=== PATIENT | male | born 1975 | race Caucasian/White ===

== ENCOUNTER 2017-07-29 19:15 | Emergency (ER) | payer OTHER ==
[~2017-07-29] VITALS: Ht 177.8 cm; Wt 138.4 kg
[~2017-07-29 19:15] MED LIST: ACET-1311 PO; AMLO10TA2 PO; DIAZ-165 PO; GABA-113 PO; LISI-729 PO
[2017-07-29 19:25] VITALS: TEMP 36.8; Ht 177.8 cm; Wt 138.4 kg
[2017-07-29] MEDS ORDERED: KETOROLAC TROMETHAMINE 30 MG/ML VIAL IV STA (20:06)
[2017-07-29] MEDS ORDERED: FENTANYL CITRATE INJ 50 MCG/1 ML 2 ML VIAL IV ONE (20:15)
[2017-07-29] MEDS ORDERED: ALBU18002 INH (20:19)
[2017-07-29 20:21] LABS: BASO % 0.4 %; BASO ABS # 0.07 K/uL (0-0.2); EOS % 2.4 %; EOS ABS # 0.43 K/uL (0-0.5); HEMATOCRIT 49.1 % (42-52); HEMOGLOBIN 17.5 g/dL (14.0-18.0); IG# 0.16 K/uL (0.00-0.02); LYMPH % 22.2 %; LYMPH ABS # 3.95 K/uL (1.2-3.4); MEAN CELL VOLUME 88.5 fL (80-100); MEAN CORPUSCULAR HEMOGLOBIN 31.5 pg (25-34); MEAN CORPUSCULAR HGB CONC 35.6 g/dl (32-36); MEAN PLATELET VOLUME 11.2 fL (7.4-10.4); MONO % 7.6 %; MONO ABS # 1.35 K/uL (0.11-0.59); NEUT % 66.5 %; NEUT ABS # 11.86 K/uL (1.4-6.5); PLATELET COUNT 283 K/uL (130-400); RED CELL DISTRIBUTION WIDTH CV 14.6 % (11.5-14.5); RED CELL DISTRIBUTION WIDTH SD 47.4 fL (36.4-46.3); WHITE BLOOD COUNT 17.82 K/uL (4.8-10.8)
[2017-07-29] MEDS ORDERED: AMOX875T3 PO (20:22)
[2017-07-29] MEDS ORDERED: PRED20TA PO (20:25)
[2017-07-29] MEDS ORDERED: DICL50TA3 PO (20:26)
--- NOTE | 2017-07-29 20:29 | DIAGNOSTIC IMAGING REPORT ---
CHEST ONE VIEW PORTABLE CLINICAL HISTORY: Atypical chest pain. Tachycardia. COMPARISON STUDY: No previous studies for comparison. FINDINGS: The heart is mildly enlarged. There is no overt failure. There is no focal pulmonary consolidation. There are no pleural effusions. Slightly prominent basilar markings, likely related to technical factors.[ IMPRESSION: No active disease in the chest. Electronically signed by: Luke Kellogg M.D. 07/29/2017 8:28 PM Dictated Date/Time: 07/29/2017 8:28 PM
--- NOTE | 2017-07-29 20:32 | EMERGENCY ROOM VISIT NOTE ---
History First contact with patient: 19:29 Chief Complaint: BACK PAIN Stated Complaint: SOB, BAD BACK PAIN History of Present Illness 41M with a PMHX of Lumbar Herniation s/p discectomy with Dr. Tierney in 2014 who presents to the Emergency Room with complaints of an acute exacerbation of LUQ pain radiating to the back. Pt has been having LUQ pain radiating to his back for two weeks. He was seen by his PCP, started on Augmentin and Prednisone three days prior and was sent for a CT Chest for PE today at [facility]. Patient was walking out of [facility] after his CT when he coughed and buckled to his knees from pain in his abdomen and back. He came to the ER immediately afterwards. Patient reports that his LUQ pain is worse when he lays supine or takes a deep breath. He has never had a pain like this before. He also notes that he has had a high heart rate and cough for the past two weeks. Pt has no history of kidney stones, no history of gallstones. Denies any rashes to the area. Denies any chest pain. SHX: Smoking x 3 years, used to chew for 25 years, social drinker, unemployed at present, when was employed did not do very physical work. ROS: Denies vomiting, denies diarrhea, denies hemoptysis, denies dysuria. + SOB on exertion that is worse recently. No fevers, no chills. Review of Systems See HPI for pertinent positives and negatives. A total of ten systems were reviewed and were otherwise negative. Past Medical/Surgical History Medical Problems: (1) Hypertension (2) Spinal fusion at L5 Surgical Problems: (1) History of appendectomy Family History Diabetes mellitus FHx: cancer Social History Smoking Status: Current Every Day Smoker Drug Use: none Marital Status: single Housing Status: lives alone Occupation Status: employed Current/Historical Medications Scheduled Amlodipine Besylate (Norvasc), 10 MG PO QAM Amoxicillin (Amoxil), 875 MG PO BID Lisinopril (Zestril), 5 MG PO QAM Prednisone (Prednisone), 20 MG PO DAILY/UD Scheduled PRN Albuterol Sulfate (Proair Respiclick), 2 PUFFS INH Q6H PRN for SOB/Wheezing Diclofenac (Voltaren), 50 MG PO TID PRN for Pain Ibuprofen (Motrin), 800 MG PO Q8H PRN for Pain Physical Exam Vital Signs Date Time Temp Pulse Resp B/P (MAP) Pulse Ox O2 Delivery O2 Flow Rate FiO2 07/29/17 21:00 92 07/29/17 20:26 99 18 132/91 93 Room Air 07/29/17 19:25 36.8 115 20 148/91 93 Room Air Physical Exam Gen: Mild to moderate distress. Obese male. HEENT: Head - normocephalic and atraumatic. Pupils are equal, round, and reactive to light. Extraocular eye muscles are intact and sclera are anicteric. Ears - bilaterally patent canals with noninjected tympanic membranes and no evidence of hemotympanum. Nose - moist nasal mucosa without discharge. Mouth - moist buccal mucosa. Oropharynx is nonerythematous and there is no tonsillar exudate or edema noted. Neck: Supple; no JVD, nuchal rigidity, cervical lymphadenopathy, or auscultated bruits. Heart: Tachycardic on exam. There is a normal S1 and S2 with no murmurs, clicks , or gallops appreciated. Lungs: Clear to auscultation bilaterally with no wheezes, rales, or rhonchi. Abdomen: Soft, tender to palpation in the LUQ, Good bowel sounds. There are no palpable pulsatile masses. There is no guarding, rigidity, or rebound noted. Extremities: No evidence of cyanosis, clubbing, or edema. No visible signs of trauma. There are easily palpable peripheral pulses. No Calf tenderness. Straight leg test was negative. Tender on the left paraspinal lumbar area to palpation. Neuro: The patient is awake and alert, oriented to day, time, and place. Muscle strength is 5/5 in all 4 extremities. The patient has equal dolly pusher strength and equal pedal push and pull. There are no cerebellar signs. Sensation to light touch is intact in all extremities. Medical Decision & Procedures ER Provider Diagnostic Interpretation: CT for PE (07/29/2016) at [facility]. Heart and Mediastinum: Unremarkable Lungs and Pleura: Minimal dependent atelectasis. Occasional calcified granulomata noted. No focal parenchymal consolidation identifie. No pneumothroax or pleural effusion. BONES: Multilevel intervertebral disc degeneration in the thoracic spine. No pulmonary embolism identified. Please note that hte distal/subsegmental branches are only variably seen, and a small peripheral embolus cannot be entirely excluded. If there is a high clinical suspicion, a V/Q scan could be considered for further evaluation. Left Ribs Unilateral Including PA Chest Impression: There is no evidence for an acute, displaced left rib fracture. CHEST ONE VIEW PORTABLE CLINICAL HISTORY: Atypical chest pain. Tachycardia. COMPARISON STUDY: No previous studies for comparison. FINDINGS: The heart is mildly enlarged. There is no overt failure. There is no focal pulmonary consolidation. There are no pleural effusions. Slightly prominent basilar markings, likely related to technical factors.[ IMPRESSION: No active disease in the chest. CT SCAN OF THE ABDOMEN AND PELVIS WITHOUT CONTRAST CLINICAL HISTORY: Left upper quadrant abdominal pain radiating to the back COMPARISON STUDY: November 2011 TECHNIQUE: CT scan of the abdomen and pelvis was performed from the lung bases to the proximal femurs. Images are reviewed in the axial, sagittal, and coronal planes. IV contrast was not administered for this examination. A dose lowering technique was utilized adhering to the principles of ALARA. CT DOSE: 1741.93 mGy.cm FINDINGS: Lower chest: There are mild basilar atelectatic changes Liver: No focal hepatic masses are visualized on this noncontrast study. There is no significant ductal dilatation. Gallbladder: Unremarkable. Spleen: Normal in size and attenuation. Pancreas: Unremarkable. Adrenal glands: Unremarkable. Kidneys: There is contrast excretion from both kidneys. This precludes evaluation of renal calculi. There is no hydronephrosis. Bowel: There are no transition zones indicate bowel obstruction. By history the appendix is surgically absent. There is no acute diverticulitis. There are surgical clips near the cecal tip. There are scattered colonic diverticula. Peritoneum: There is no intraperitoneal free air or abdominal ascites. Vasculature: The abdominal aorta is normal in course and caliber. Adenopathy: None. Pelvic viscera: The bladder, and pelvic viscera are unremarkable. Skeletal structures: Postsurgical changes are present within the spine. IMPRESSION: 1. No evidence of bowel obstruction. No evidence of free air 2. Surgically absent appendix. No evidence of acute diverticulitis 3. No acute inflammatory changes. No evidence of pathologic adenopathy. Laboratory Results 07/29/17 20:00 Red Blood Count 5.55, Mean Corpuscular Volume 88.5, Mean Corpuscular Hemoglobin 31.5, Mean Corpuscular Hemoglobin Concent 35.6, Mean Platelet Volume 11.2, Neutrophils (%) (Auto) 66.5, Lymphocytes (%) (Auto) 22.2, Monocytes (%) (Auto) 7.6, Eosinophils (%) (Auto) 2.4, Basophils (%) (Auto) 0.4, Neutrophils # (Auto) 11.86, Lymphocytes # (Auto) 3.95, Monocytes # (Auto) 1.35, Eosinophils # (Auto) 0.43, Basophils # (Auto) 0.07 07/29/17 20:00 Test 07/29/17 20:00 07/29/17 20:30 07/29/17 20:31 07/29/17 20:44 White Blood Count 17.82 K/uL (4.8-10.8) Red Blood Count 5.55 M/uL (4.7-6.1) Hemoglobin 17.5 g/dL (14.0-18.0) Hematocrit 49.1 % (42-52) Mean Corpuscular Volume 88.5 fL (80-100) Mean Corpuscular Hemoglobin 31.5 pg (25-34) Mean Corpuscular Hemoglobin Concent 35.6 g/dl (32-36) Platelet Count 283 K/uL (130-400) Mean Platelet Volume 11.2 fL (7.4-10.4) Neutrophils (%) (Auto) 66.5 % Lymphocytes (%) (Auto) 22.2 % Monocytes (%) (Auto) 7.6 % Eosinophils (%) (Auto) 2.4 % Basophils (%) (Auto) 0.4 % Neutrophils # (Auto) 11.86 K/uL (1.4-6.5) Lymphocytes # (Auto) 3.95 K/uL (1.2-3.4) Monocytes # (Auto) 1.35 K/uL (0.11-0.59) Eosinophils # (Auto) 0.43 K/uL (0-0.5) Basophils # (Auto) 0.07 K/uL (0-0.2) RDW Standard Deviation 47.4 fL (36.4-46.3) RDW Coefficient of Variation 14.6 % (11.5-14.5) Immature Granulocyte % (Auto) 0.9 % Immature Granulocyte # (Auto) 0.16 K/uL (0.00-0.02) Anion Gap 9.0 mmol/L (3-11) Est Creatinine Clear Calc Drug Dose 100.4 ml/min Estimated GFR () 75.4 Estimated GFR (Non- 65.0 BUN/Creatinine Ratio 21.1 (10-20) Calcium Level 9.7 mg/dl (8.5-10.1) Magnesium Level 2.3 mg/dl (1.8-2.4) Total Bilirubin 0.4 mg/dl (0.2-1) Aspartate Amino Transf (AST/SGOT) 30 U/L (15-37) Alanine Aminotransferase (ALT/SGPT) 48 U/L (12-78) Alkaline Phosphatase 92 U/L (45-117) Total Protein 7.7 gm/dl (6.4-8.2) Albumin 4.1 gm/dl (3.4-5.0) Globulin 3.6 gm/dl (2.5-4.0) Albumin/Globulin Ratio 1.1 (0.9-2) Lipase 279 U/L (73-393) Chemistry Specimen Hemolysis Urine Color YELLOW Urine Appearance CLEAR (CLEAR) Urine pH 5.0 (4.5-7.5) Urine Specific Ferriday 1.034 (1.000-1.030) Urine Protein NEG (NEG) Urine Glucose (UA) NEG (NEG) Urine Ketones NEG (NEG) Urine Occult Blood NEG (NEG) Urine Nitrite NEG (NEG) Urine Bilirubin NEG (NEG) Urine Urobilinogen NEG (NEG) Urine Leukocyte Esterase NEG (NEG) Bedside Troponin I < 0.030 ng/ml (0-0.045) Lactic Acid Level 0.8 mmol/L (0.4-2.0) Medications Administered Medications (Trade) Dose Ordered Sig/Faustina Route Start Time Stop Time Status Last Admin Dose Admin Ketorolac Tromethamine (Toradol Inj) 15 mg NOW STAT IV 07/29/17 20:06 07/29/17 20:12 DC 07/29/17 20:24 15 MG Fentanyl Citrate (Fentanyl Inj) 50 mcg NOW ONCE IV 07/29/17 20:15 07/29/17 20:16 DC 07/29/17 20:25 50 MCG ECG Indication: abdominal pain Rhythm: normal sinus Comparison ECG Date: no prior available Medical Decision The patient's care and disposition was discussed with Dr. Thompson, Attending ED Physician. This is a 41M with LUQ pain radiating to the back. Differential diagnosis include pancreatitis, muscle strain, acute coronary syndrome, myocardial infarction, pericarditis, pulmonary embolus, aortic dissection, pneumonia, pneumothorax, musculoskeletal, shingles, esophageal. Triage Nursing notes were reviewed. ED Course included an extensive history and physical exam, labs, EKG and imaging. Labs are significant for an elevated WBC count (18,000). This is not remarkable in the setting of the patient's Prednisone use. Trops were negative. Lipase WNL. Lactate WNL. CT of the Abdomen and Pelvis without contrast did not show any acute process. EKG showed sinus rhythm. CT for PE done at [facility] was reviewed and recent rib series were reviewed. The pt was informed about the findings as listed above. All questions were answered. Return instructions were outlined and the patient was discharged in good condition. The patient was referred to PCP for recheck of the current condition. Head Trauma GCS Score: 15 Impression Primary Impression: Bronchitis Departure Information Dispostion Home / Self-Care Prescriptions Ibuprofen (Motrin) 800 Mg Tab 800 MG PO Q8H Y for Pain for 7 Days, #21 TAB Prov: Serjio Stephens M.D. 07/29/17 Referrals Eduardo Cabrera III, M.D. (PCP) Patient Instructions Bronchitis Acute, My [facility] Additional Instructions The imaging of your Abdomen and Pelvis did not show any abnormal process. The lab work was also normal. The EKG was also normal. The pain is likely coming from inflammation in your chest wall from an inflammatory process such as bronchitis. You may resume your home medications including Augmentin and Prednisone as directed. We are prescribing 800mg of Ibuprofen for pain. Take this medication up to three times daily. Make sure you drink a lot of fluids when taking Ibuprofen. Do not take your Diclofenac while taking Ibuprofen. Please follow up with your PCP within 1-2 weeks. Resident Involvement: Resident Care Provided Care Provided: [facility]
[2017-07-29 20:55] LABS: ALBUMIN 4.1 gm/dl (3.4-5.0); CALCIUM 9.7 mg/dl (8.5-10.1); CREATININE 1.33 mg/dl (0.60-1.40); POTASSIUM 4.1 mmol/L (3.5-5.1); TOTAL PROTEIN 7.7 gm/dl (6.4-8.2)
--- NOTE | 2017-07-29 21:03 | DIAGNOSTIC IMAGING REPORT ---
CT SCAN OF THE ABDOMEN AND PELVIS WITHOUT CONTRAST CLINICAL HISTORY: Left upper quadrant abdominal pain radiating to the back COMPARISON STUDY: November 2011 TECHNIQUE: CT scan of the abdomen and pelvis was performed from the lung bases to the proximal femurs. Images are reviewed in the axial, sagittal, and coronal planes. IV contrast was not administered for this examination. A dose lowering technique was utilized adhering to the principles of ALARA. CT DOSE: 1741.93 mGy.cm FINDINGS: Lower chest: There are mild basilar atelectatic changes Liver: No focal hepatic masses are visualized on this noncontrast study. There is no significant ductal dilatation. Gallbladder: Unremarkable. Spleen: Normal in size and attenuation. Pancreas: Unremarkable. Adrenal glands: Unremarkable. Kidneys: There is contrast excretion from both kidneys. This precludes evaluation of renal calculi. There is no hydronephrosis. Bowel: There are no transition zones indicate bowel obstruction. By history the appendix is surgically absent. There is no acute diverticulitis. There are surgical clips near the cecal tip. There are scattered colonic diverticula. Peritoneum: There is no intraperitoneal free air or abdominal ascites. Vasculature: The abdominal aorta is normal in course and caliber. Adenopathy: None. Pelvic viscera: The bladder, and pelvic viscera are unremarkable. Skeletal structures: Postsurgical changes are present within the spine. IMPRESSION: 1. No evidence of bowel obstruction. No evidence of free air 2. Surgically absent appendix. No evidence of acute diverticulitis 3. No acute inflammatory changes. No evidence of pathologic adenopathy. Electronically signed by: Luke Kellogg M.D. 07/29/2017 9:02 PM Dictated Date/Time: 07/29/2017 8:56 PM
[2017-07-29] MEDS ORDERED: IBUP-1428 PO (21:28)
[2017-07-29 21:48] VITALS: BP 127/82; PULSE 98; O2SAT 95
--- NOTE | 2017-07-29 22:30 | EMERGENCY ROOM VISIT NOTE ---
History Report prepared by Joanie: Milagros Martinez Under the Supervision of: Dr. Waqar Thompson M.D. First contact with patient: 19:29 Chief Complaint: BACK PAIN Stated Complaint: SOB, BAD BACK PAIN History of Present Illness The patient is a 41 year old male who presents to the Emergency Room with complaints of persistent LUQ abdominal pain starting HAIR STYLIST. The patient had a CTA today to look for PE which was negative. He has had persistent tachycardia and pleuritic chest pain for the past 2 weeks. He also had an elevated D dimer. As he was leaving the office today, he coughed and started having excruciating LUQ pain which goes through to his back. He describes the pain as stabbing. He had this pain 4-5 days ago with coughing and was not able to sleep. The pain worsens with lying down. He has had a cough which produces brown sputum. He is on amoxicillin, prednisone, and an inhaler. He has had SOB with exertion for the past 2 weeks. His chest pain worsens with deep breaths. He denies any fevers , chills, congestion, urinary symptoms, change in bowel movement, vomiting, or diarrhea. He does smoke 1 pack per day. He denies any alcohol use. He denies any history of gallstones or kidney stones. His was sick with a virus recently. He has a history of hypertension. He denies any history of heart problems. He denies any recent falls. He does drink coffee and ice tea throughout the day. Source of History: patient Onset: HAIR STYLIST Position: abdomen (LUQ) Symptom Intensity: excruciating Quality: stabbing Timing: other (persistent) Modifying Factors (Worsening): other (lying down) Associated Symptoms: + cough, + chest pain, + SOB, + back pain, No fevers, No chills, No vomiting, No diarrhea, No urinary symptoms Review of Systems See HPI for pertinent positives and negatives. A total of ten systems were reviewed and were otherwise negative. Past Medical & Surgical Medical Problems: (1) Hypertension (2) Spinal fusion at L5 Surgical Problems: (1) History of appendectomy Family History Diabetes mellitus FHx: cancer Social History Smoking Status: Current Every Day Smoker Alcohol Use: none Marital Status: Current/Historical Medications Scheduled Amlodipine Besylate (Norvasc), 10 MG PO QAM Amoxicillin (Amoxil), 875 MG PO BID Lisinopril (Zestril), 5 MG PO QAM Prednisone (Prednisone), 20 MG PO DAILY/UD Scheduled PRN Albuterol Sulfate (Proair Respiclick), 2 PUFFS INH Q6H PRN for SOB/Wheezing Diclofenac (Voltaren), 50 MG PO TID PRN for Pain Ibuprofen (Motrin), 800 MG PO Q8H PRN for Pain Allergies Coded Allergies: No Known Allergies (Verified , 07/29/17) Physical Exam Vital Signs Date Time Temp Pulse Resp B/P (MAP) Pulse Ox O2 Delivery O2 Flow Rate FiO2 07/29/17 21:48 98 19 127/82 95 07/29/17 21:00 92 07/29/17 20:26 99 18 132/91 93 Room Air 07/29/17 19:25 36.8 115 20 148/91 93 Room Air Physical Exam GENERAL: Awake, alert, uncomfortable-appearing, in no distress HENT: Normocephalic, atraumatic. Dry mucous membranes. EYES: Normal conjunctiva. Sclera non-icteric. NECK: Supple. No nuchal rigidity. FROM. No JVD. RESPIRATORY: Clear to auscultation. CARDIAC: Regular rate, normal rhythm. Extremities warm and well perfused. Pulses equal. ABDOMEN: Soft, non-distended. Mild LUQ tenderness to palpation. No peritoneal signs. No rebound or guarding. No masses. RECTAL: Deferred. MUSCULOSKELETAL: Chest examination reveals no tenderness. The back is symmetrical on inspection without obvious abnormality. There is mild left CVA tenderness to palpation. No joint edema. LOWER EXTREMITIES: Calves are equal size bilaterally and non-tender. No edema. No discoloration. NEURO: Normal sensorium. No sensory or motor deficits noted. SKIN: No rash or jaundice noted. Medical Decision & Procedures ER Provider Diagnostic Interpretation: Radiology results as stated below per my review and radiologist interpretation: CHEST ONE VIEW PORTABLE CLINICAL HISTORY: Atypical chest pain. Tachycardia. COMPARISON STUDY: No previous studies for comparison. FINDINGS: The heart is mildly enlarged. There is no overt failure. There is no focal pulmonary consolidation. There are no pleural effusions. Slightly prominent basilar markings, likely related to technical factors.[ IMPRESSION: No active disease in the chest. Electronically signed by: Luke Kellogg M.D. 07/29/2017 8:28 PM Dictated Date/Time: 07/29/2017 8:[address] SCAN OF THE ABDOMEN AND PELVIS WITHOUT CONTRAST CLINICAL HISTORY: Left upper quadrant abdominal pain radiating to the back COMPARISON STUDY: November 2011 TECHNIQUE: CT scan of the abdomen and pelvis was performed from the lung bases to the proximal femurs. Images are reviewed in the axial, sagittal, and coronal planes. IV contrast was not administered for this examination. A dose lowering technique was utilized adhering to the principles of ALARA. CT DOSE: 1741.93 mGy.cm FINDINGS: Lower chest: There are mild basilar atelectatic changes Liver: No focal hepatic masses are visualized on this noncontrast study. There is no significant ductal dilatation. Gallbladder: Unremarkable. Spleen: Normal in size and attenuation. Pancreas: Unremarkable. Adrenal glands: Unremarkable. Kidneys: There is contrast excretion from both kidneys. This precludes evaluation of renal calculi. There is no hydronephrosis. Bowel: There are no transition zones indicate bowel obstruction. By history the appendix is surgically absent. There is no acute diverticulitis. There are surgical clips near the cecal tip. There are scattered colonic diverticula. Peritoneum: There is no intraperitoneal free air or abdominal ascites. Vasculature: The abdominal aorta is normal in course and caliber. Adenopathy: None. Pelvic viscera: The bladder, and pelvic viscera are unremarkable. Skeletal structures: Postsurgical changes are present within the spine. IMPRESSION: 1. No evidence of bowel obstruction. No evidence of free air 2. Surgically absent appendix. No evidence of acute diverticulitis 3. No acute inflammatory changes. No evidence of pathologic adenopathy. Electronically signed by: Luke Kellogg M.D. 07/29/2017 9:02 PM Dictated Date/Time: 07/29/2017 8:56 PM Laboratory Results 07/29/17 20:00 Red Blood Count 5.55, Mean Corpuscular Volume 88.5, Mean Corpuscular Hemoglobin 31.5, Mean Corpuscular Hemoglobin Concent 35.6, Mean Platelet Volume 11.2, Neutrophils (%) (Auto) 66.5, Lymphocytes (%) (Auto) 22.2, Monocytes (%) (Auto) 7.6, Eosinophils (%) (Auto) 2.4, Basophils (%) (Auto) 0.4, Neutrophils # (Auto) 11.86, Lymphocytes # (Auto) 3.95, Monocytes # (Auto) 1.35, Eosinophils # (Auto) 0.43, Basophils # (Auto) 0.07 07/29/17 20:00 Test 07/29/17 20:00 07/29/17 20:30 07/29/17 20:31 07/29/17 20:44 White Blood Count 17.82 K/uL (4.8-10.8) Red Blood Count 5.55 M/uL (4.7-6.1) Hemoglobin 17.5 g/dL (14.0-18.0) Hematocrit 49.1 % (42-52) Mean Corpuscular Volume 88.5 fL (80-100) Mean Corpuscular Hemoglobin 31.5 pg (25-34) Mean Corpuscular Hemoglobin Concent 35.6 g/dl (32-36) Platelet Count 283 K/uL (130-400) Mean Platelet Volume 11.2 fL (7.4-10.4) Neutrophils (%) (Auto) 66.5 % Lymphocytes (%) (Auto) 22.2 % Monocytes (%) (Auto) 7.6 % Eosinophils (%) (Auto) 2.4 % Basophils (%) (Auto) 0.4 % Neutrophils # (Auto) 11.86 K/uL (1.4-6.5) Lymphocytes # (Auto) 3.95 K/uL (1.2-3.4) Monocytes # (Auto) 1.35 K/uL (0.11-0.59) Eosinophils # (Auto) 0.43 K/uL (0-0.5) Basophils # (Auto) 0.07 K/uL (0-0.2) RDW Standard Deviation 47.4 fL (36.4-46.3) RDW Coefficient of Variation 14.6 % (11.5-14.5) Immature Granulocyte % (Auto) 0.9 % Immature Granulocyte # (Auto) 0.16 K/uL (0.00-0.02) Anion Gap 9.0 mmol/L (3-11) Est Creatinine Clear Calc Drug Dose 100.4 ml/min Estimated GFR () 75.4 Estimated GFR (Non- 65.0 BUN/Creatinine Ratio 21.1 (10-20) Calcium Level 9.7 mg/dl (8.5-10.1) Magnesium Level 2.3 mg/dl (1.8-2.4) Total Bilirubin 0.4 mg/dl (0.2-1) Aspartate Amino Transf (AST/SGOT) 30 U/L (15-37) Alanine Aminotransferase (ALT/SGPT) 48 U/L (12-78) Alkaline Phosphatase 92 U/L (45-117) Total Protein 7.7 gm/dl (6.4-8.2) Albumin 4.1 gm/dl (3.4-5.0) Globulin 3.6 gm/dl (2.5-4.0) Albumin/Globulin Ratio 1.1 (0.9-2) Lipase 279 U/L (73-393) Chemistry Specimen Hemolysis Urine Color YELLOW Urine Appearance CLEAR (CLEAR) Urine pH 5.0 (4.5-7.5) Urine Specific [place] 1.034 (1.000-1.030) Urine Protein NEG (NEG) Urine Glucose (UA) NEG (NEG) Urine Ketones NEG (NEG) Urine Occult Blood NEG (NEG) Urine Nitrite NEG (NEG) Urine Bilirubin NEG (NEG) Urine Urobilinogen NEG (NEG) Urine Leukocyte Esterase NEG (NEG) Bedside Troponin I < 0.030 ng/ml (0-0.045) Lactic Acid Level 0.8 mmol/L (0.4-2.0) Laboratory results reviewed by me Medications Administered Medications (Trade) Dose Ordered Sig/Faustina Route Start Time Stop Time Status Last Admin Dose Admin Ketorolac Tromethamine (Toradol Inj) 15 mg NOW STAT IV 07/29/17 20:06 07/29/17 20:12 DC 07/29/17 20:24 15 MG Fentanyl Citrate (Fentanyl Inj) 50 mcg NOW ONCE IV 07/29/17 20:15 07/29/17 20:16 DC 07/29/17 20:25 50 MCG ECG Indication: chest pain Rate (beats per minute): 95 Rhythm: normal sinus Findings: no acute ischemic change, other (normal axis) ED Course 2030: The patient was evaluated in room B8. A complete history and physical exam was performed. Medical Decision I reviewed the patient's past medical history, medications, and the nursing notes as described above. Differential diagnosis: Etiologies such as appendicitis, diverticulitis, PUD, biliary pathology, UTI, pancreatitis, obstruction, mesenteric ischemia, aortic pathology, infections, inflammatory bowel disease, renal colic, as well as others were entertained. The patient is a 41 y/o gentleman with a pmhx of HTN and active smoking presents to the emergency department with persistent Left CW and LUQ pain in the setting of persistent cough with pcp visit today with negative CT-PE study and started on Prednisone, Albuterol, and Amoxicillin per HPI. On arrival the patient is in NAD, AFVSS. Labs with elevated wbc 17, which is likely 2/2 his bronchitis and possible contribution of having started prednisone. Labs otherwise unremarkable including lactate wnl. BUN/Cr > 20 suggesting likely mild dehydration. EKG and cxr unremarkable. On exam patient had reproducible LUQ and left flank pain. CT abd/pel without contrast negative for acute findings. Thus sx most c/w muscular strain in the setting of the patient's bronchitis. Patient already on prednisone, azithro, and albuterol. Will given additional ibuprofen for pain relief. Findings and plan for follow-up reviewed with patient. Patient agreeable and d/c'd per discharge instructions. I discussed the case with the resident physician, examined the patient, and agree with the findings and plan as documented in the residents note unless otherwise clarified here by me. Medication Reconcilliation Current Medication List: was personally reviewed by me Blood Pressure Screening Patient's blood pressure: Elevated blood pressure Blood pressure disposition: Elevated BP felt to be situational Impression Primary Impression: Bronchitis Additional Impression: Chest wall pain Scribe Attestation The scribe's documentation has been prepared under my direction and personally reviewed by me in its entirety. I confirm that the note above accurately reflects all work, treatment, procedures, and medical decision making performed by me. Departure Information Dispostion Home / Self-Care Prescriptions Ibuprofen (Motrin) 800 Mg Tab 800 MG PO Q8H Y for Pain for 7 Days, #21 TAB Prov: Serjio Stephens M.D. 07/29/17 Referrals Eduardo Cabrera III, M.D. (PCP) Forms HOME CARE DOCUMENTATION FORM, IMPORTANT VISIT INFORMATION Patient Instructions Bronchitis Acute, [facility] Additional Instructions The imaging of your Abdomen and Pelvis did not show any abnormal process. The lab work was also normal. The EKG was also normal. The pain is likely coming from inflammation in your chest wall from an inflammatory process such as bronchitis. You may resume your home medications including Augmentin and Prednisone as directed. We are prescribing 800mg of Ibuprofen for pain. Take this medication up to three times daily. Make sure you drink a lot of fluids when taking Ibuprofen. Do not take your Diclofenac while taking Ibuprofen. Please follow up with your PCP within 1-2 weeks. Problem Qualifiers
== END 2017-07-29 21:49 | disposition home or self-care (01) ==
LOC: C.EDB 19:17
DX: J40 Bronchitis, not specified as acute or chronic (principal); R07.89 Other chest pain; F17.200 Nicotine dependence, unspecified, uncomplicated; I10 Essential (primary) hypertension; Z98.1 Arthrodesis status; Z83.3 Family history of diabetes mellitus; Z80.9 Family history of malignant neoplasm, unspecified

== ENCOUNTER 2021-06-09 11:43 | Inpatient (IN) ==
[2021-06-09] MEDS ORDERED: SODIUM CHLORIDE 0.9% 500 ML IV STA (11:47)
[2021-06-09 12:14] LABS: Hematocrit (blood only) 28.7 % (42-52); Hemoglobin 9.4 g/dL (14.0-18.0); Mean Corpuscular Hemoglobin 30.2 pg (25-34); Mean Corpuscular Hgb Conc 32.8 g/dL (32-36); Mean Corpuscular Volume 92.3 fL (80-100); Mean Platelet Volume 10.5 fL (7.4-10.4); Platelet Count 342 K/uL (130-400); RDW Coefficient of Variation 14.4 % (11.5-14.5); Red Blood Count 3.11 M/uL (4.7-6.1); White Blood Count 12.77 K/uL (4.8-10.8)
[2021-06-09 12:27] LABS: Partial Thromboplastin Ratio 0.9; Partial Thromboplastin Time 23.3 Seconds (21.0-31.0); Prothrombin Time 10.3 Seconds (9.0-12.0)
[2021-06-09 12:31] LABS: Albumin Level 3.4 gm/dl (3.4-5.0); BUN Creatinine Ratio 34.7 (10-20); Calcium 8.5 mg/dl (8.5-10.1); Creatinine Clr Calc Pharmacy 99.3 ml/min; Est GFR (African American) 80.5 ml/min; Est GFR (Non-African American) 69.5 ml/min; Potassium 4.4 mmol/L (3.5-5.1)
[2021-06-09 12:34] LABS: Albumin Globulin Ratio 1.1 (0.9-2); Bilirubin,Total 0.3 mg/dl (0.2-1); Globulin 3.1 gm/dl (2.5-4.0); Total Protein 6.5 gm/dl (6.4-8.2)
--- NOTE | 2021-06-09 13:03 | Emergency Department Note ---
Impression & Plan Acute lower GI bleeding, Anemia ED Provider Note NAME: RAJ GRAY JR AGE: 45 SEX: M : 1975 ARRIVES VIA: Walk-In INFORMANT: Patient, ED PROVIDER(S): Remy Turner DO CHIEF COMPLAINT: GI bleeding HPI: The patient is a 45-year-old male who presented to emergency department for an evaluation of GI bleeding. The patient noticed lower abdominal tenderness. He was here Saturday with similar complaints. At that time the patient had a complete work-up but was able to be discharged to home. He states his symptoms have not improved and he continues to have bloody bowel movements. He started having episodes of nausea and vomiting and presented back to the emergency department for further evaluation. The patient does note some lower abdominal tenderness. He did have a CAT scan when he was our facility recently. He denies having any fevers or chills. He has no history of inflammatory bowel disease. He has no back pain. He denies having any chest pain but does complain of some dizziness upon standing. ROS: See above HPI for pertinent positives & negatives. A total of 10 systems reviewed and were otherwise negative. PAST MEDICAL HISTORY: See Below PAST SURGICAL HISTORY: See Below FAMILY HISTORY: See Below SOCIAL HISTORY: See Below HOME MEDICATIONS: See Below ALLERGIES: See Below VITALS: See Below PHYSICAL EXAMINATION: GENERAL: Patient is awake alert in no acute distress patient is resting comfortably and showing no signs of anxiety EYES: The conjunctivae are clear. The pupils are round and reactive. EARS, NOSE, MOUTH AND THROAT: The nose is without any evidence of any deformity. NECK: The neck is nontender and supple. RESPIRATORY: Normal respiratory effort is noted there is no evidence of wheezing rhonchi or rales CARDIOVASCULAR: Tachycardic rate with regular rhythm was noted. There was no definite murmur. GASTROINTESTINAL: The abdomen was soft and nondistended. There was no significant tenderness guarding rigidity. Rectal exam revealed gross blood. MUSCULOSKELETAL/EXTREMITIES: There is no evidence of gross deformity full range of motion is noted in the hips and shoulders. SKIN: There is no obvious evidence of any rash. There are no petechiae, pallor or cyanosis noted. NEUROLOGIC: Patient is awake alert and oriented x3. MEDICAL DECISION MAKING: The patient is a 45-year-old male who presented to the emergency department for an evaluation of dizziness upon standing and rectal bleeding. The patient was seen in our facility recently with similar complaints. At that time he was found to have a stable GI bleed. His symptoms did not improve and he returned to the emergency department today because of worsening symptoms and now more dizziness upon standing. I discussed the patient's laboratory results with him. Because of his findings I discussed this case with the on-call [facility] group. They have agreed to evaluate the patient in the emergency department for further management and disposition. Triage Nursing notes reviewed. Prior medical records reviewed Vital Signs: reviewed and remarkable for no significant abnormalities Differential diagnosis: Diverticulosis, AVM, coagulopathy, colitis, inflammatory bowel disease, malignancy, Kalpana-Paulson tear, esophagitis, peptic ulcer disease, variceal bleed, gastritis, epistaxis, fissure, hemorrhoids, as well as other pathologies. ER treatment provided: See below Diagnostics interpreted by me: ECG: none Cardiac Monitoring: An order was placed for continuous cardiac monitoring. The monitor shows a rate of 84 bpm with sinus rhythm. Laboratory studies: As stated above and show below. Imaging studies: See below Consultation(s): I discussed this case with Joann who is on-call for the [facility] group. Past Med/Surg History Medical History (Updated 06/09/21 @ 17:29 by Remy Turner DO) Bronchitis hx of---reason for inhaler Chronic back pain Depression Gout Hearing deficit History of anesthesia reaction difficulty waking with last back surgery Hyperlipidemia Hypertension Hypothyroidism Morbid obesity with BMI of 45.0-49.9, adult Sleep apnea bipap Surgical History History of appendectomy History of endoscopic sinus surgery History of lumbar discectomy History of lumbar spinal fusion x2 History of repair of left rotator cuff History of tonsillectomy and adenoidectomy History of wisdom tooth extraction Status post tendon repair x2--left pectoral and right pectoral Family History Mother Family history of diabetes mellitus Grandfather (Maternal) Family history of esophageal cancer Grandfather (Paternal) Family hx of colon cancer Father Family hx colonic polyps Other No family history of adverse response to anesthesia Social History (Updated 06/09/21 @ 15:46 by JOSUE Fontenot Smoking Status: Former smoker Second Hand Exposure: Yes ( smokes); Hx Alcohol Use: No Hx Substance Use: No Preferred Language: Hungarian Communication Ability: Effective 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 Beliefs That Will Affect Care: None Current Living Situation: Spouse and Family Current Living Situation Comment: Lives with and 2 kids Feels Safe at Home: Yes Assistive Devices: BiPap Allergies Allergies Allergy/AdvReac Type Severity Reaction Status Date / Time No Known Allergies Allergy Verified 06/09/21 14:05 Home Meds Home Medications Medication Instructions Recorded Confirmed sildenafil (pulm.hypertension) 20 40 mg PO UD PRN 04/29/19 06/09/21 mg tablet (Revatio) amlodipine 5 mg tablet 5 mg PO QAM 06/07/21 06/09/21 celecoxib 100 mg capsule 100 mg PO QAM 06/07/21 06/09/21 lisinopril 30 mg tablet 30 mg PO QAM 06/07/21 06/09/21 acetaminophen 500 mg tablet 1,000 mg PO Q6H PRN 06/09/21 06/09/21 (Tylenol Extra Strength) allopurinol 100 mg tablet 150 mg PO QAM 06/09/21 06/09/21 ibuprofen 200 mg tablet 800 mg PO Q6H PRN 06/09/21 06/09/21 Results & Data (ED) Vital Signs Vital Signs - 24 hr 06/09/21 11:46 06/09/21 12:52 06/09/21 13:00 Temperature 36.7 C Temperature Source Temporal Artery Scan Pulse Rate 114 H 93 H 85 Pulse Rate [Left Finger] 93 H Pulse Rate from SpO2 Sensor 85 Pulse Rhythm Regular Pulse Rhythm [Left Finger] Regular Pulse Strength [Left Finger] Normal Respiratory Rate 18 14 15 Respiratory Effort / Characteristics Non-Labored Spontaneous Respiratory Depth Normal Respiratory Pattern Regular Blood Pressure 100/57 L 109/57 L Blood Pressure [Right Arm] 106/55 L Blood Pressure Mean 71 74 Blood Pressure Mean [Right Arm] 72 Blood Pressure Position [Right Arm] Sitting Pulse Oximetry 100 96 98 Oxygen Delivery Method Room Air Room Air Room Air Sepsis Recent Fever Within 48 Hours No Sepsis New/Unexplained Change in Mental Status No Sepsis Action Taken by Nursing No Action Required 06/09/21 13:10 06/09/21 13:20 06/09/21 13:30 Temperature Temperature Source Pulse Rate 88 91 H 93 H Pulse Rate [Left Finger] Pulse Rate from SpO2 Sensor 87 91 H 92 H Pulse Rhythm Pulse Rhythm [Left Finger] Pulse Strength [Left Finger] Respiratory Rate 15 21 16 Respiratory Effort / Characteristics Respiratory Depth Respiratory Pattern Blood Pressure Blood Pressure [Right Arm] Blood Pressure Mean Blood Pressure Mean [Right Arm] Blood Pressure Position [Right Arm] Pulse Oximetry 94 98 98 Oxygen Delivery Method Sepsis Recent Fever Within 48 Hours Sepsis New/Unexplained Change in Mental Status Sepsis Action Taken by Nursing 06/09/21 13:40 06/09/21 13:50 06/09/21 14:00 Temperature Temperature Source Pulse Rate 85 91 H 87 Pulse Rate [Left Finger] Pulse Rate from SpO2 Sensor 86 91 H 89 Pulse Rhythm Pulse Rhythm [Left Finger] Pulse Strength [Left Finger] Respiratory Rate 15 17 15 Respiratory Effort / Characteristics Respiratory Depth Respiratory Pattern Blood Pressure Blood Pressure [Right Arm] Blood Pressure Mean Blood Pressure Mean [Right Arm] Blood Pressure Position [Right Arm] Pulse Oximetry 96 99 97 Oxygen Delivery Method Room Air Sepsis Recent Fever Within 48 Hours Sepsis New/Unexplained Change in Mental Status Sepsis Action Taken by Nursing 06/09/21 14:10 06/09/21 14:20 06/09/21 14:30 Temperature Temperature Source Pulse Rate 82 99 H 83 Pulse Rate [Left Finger] Pulse Rate from SpO2 Sensor 80 96 H 83 Pulse Rhythm Pulse Rhythm [Left Finger] Pulse Strength [Left Finger] Respiratory Rate 15 16 21 Respiratory Effort / Characteristics Respiratory Depth Respiratory Pattern Blood Pressure Blood Pressure [Right Arm] Blood Pressure Mean Blood Pressure Mean [Right Arm] Blood Pressure Position [Right Arm] Pulse Oximetry 97 97 97 Oxygen Delivery Method Sepsis Recent Fever Within 48 Hours Sepsis New/Unexplained Change in Mental Status Sepsis Action Taken by Nursing 06/09/21 14:40 06/09/21 14:50 06/09/21 15:00 Temperature Temperature Source Pulse Rate 85 87 Pulse Rate [Left Finger] Pulse Rate from SpO2 Sensor 84 87 85 Pulse Rhythm Pulse Rhythm [Left Finger] Pulse Strength [Left Finger] Respiratory Rate 13 17 16 Respiratory Effort / Characteristics Respiratory Depth Respiratory Pattern Blood Pressure 112/58 L 112/58 L Blood Pressure [Right Arm] Blood Pressure Mean 76 76 Blood Pressure Mean [Right Arm] Blood Pressure Position [Right Arm] Pulse Oximetry 97 98 98 Oxygen Delivery Method Room Air Room Air Sepsis Recent Fever Within 48 Hours Sepsis New/Unexplained Change in Mental Status Sepsis Action Taken by Nursing 06/09/21 15:10 06/09/21 15:20 06/09/21 15:30 Temperature Temperature Source Pulse Rate 84 92 H 89 Pulse Rate [Left Finger] Pulse Rate from SpO2 Sensor 84 94 H 88 Pulse Rhythm Pulse Rhythm [Left Finger] Pulse Strength [Left Finger] Respiratory Rate 16 15 16 Respiratory Effort / Characteristics Respiratory Depth Respiratory Pattern Blood Pressure 121/60 Blood Pressure [Right Arm] Blood Pressure Mean 80 Blood Pressure Mean [Right Arm] Blood Pressure Position [Right Arm] Pulse Oximetry 97 96 98 Oxygen Delivery Method Room Air Sepsis Recent Fever Within 48 Hours Sepsis New/Unexplained Change in Mental Status Sepsis Action Taken by Nursing 06/09/21 15:40 06/09/21 15:50 06/09/21 16:00 Temperature Temperature Source Pulse Rate 84 85 87 Pulse Rate [Left Finger] Pulse Rate from SpO2 Sensor 83 85 86 Pulse Rhythm Pulse Rhythm [Left Finger] Pulse Strength [Left Finger] Respiratory Rate 16 12 17 Respiratory Effort / Characteristics Respiratory Depth Respiratory Pattern Blood Pressure 113/61 Blood Pressure [Right Arm] Blood Pressure Mean 78 Blood Pressure Mean [Right Arm] Blood Pressure Position [Right Arm] Pulse Oximetry 97 98 97 Oxygen Delivery Method Room Air Sepsis Recent Fever Within 48 Hours Sepsis New/Unexplained Change in Mental Status Sepsis Action Taken by Nursing 06/09/21 16:10 06/09/21 16:20 Temperature Temperature Source Pulse Rate 84 84 Pulse Rate [Left Finger] Pulse Rate from SpO2 Sensor 85 Pulse Rhythm Pulse Rhythm [Left Finger] Pulse Strength [Left Finger] Respiratory Rate 20 12 Respiratory Effort / Characteristics Respiratory Depth Respiratory Pattern Blood Pressure Blood Pressure [Right Arm] Blood Pressure Mean Blood Pressure Mean [Right Arm] Blood Pressure Position [Right Arm] Pulse Oximetry 96 97 Oxygen Delivery Method Room Air Room Air Sepsis Recent Fever Within 48 Hours Sepsis New/Unexplained Change in Mental Status Sepsis Action Taken by Correction Medications Current Medication List: was personally reviewed by me Laboratory Data Attestation: I reviewed the patient's lab results. Result diagrams: 06/09/21 11:56 06/09/21 11:56 Lab Results 06/09/21 06/09/21 06/09/21 Range/Units 11:56 11:56 11:56 WBC 12.77 H (4.8-10.8) K/uL RBC 3.11 L (4.7-6.1) M/uL Hgb 9.4 L D (14.0-18.0) g/dL Hct 28.7 L (42-52) % MCV 92.3 (80-100) fL MCH 30.2 (25-34) pg MCHC 32.8 (32-36) g/dL RDW Std Deviation 48.0 H (36.4-46.3) fL RDW Coeff of Jerry 14.4 (11.5-14.5) % Plt Count 342 (130-400) K/uL MPV 10.5 H (7.4-10.4) fL PT 10.3 (9.0-12.0) Seconds INR 1.0 (0.9-1.1) APTT 23.3 (21.0-31.0) Seconds PTT Ratio 0.9 Sodium (136-145) mmol/L Potassium (3.5-5.1) mmol/L Chloride (98-107) mmol/L Carbon Dioxide (21-32) mmol/L Anion Gap (3-11) BUN (7-18) mg/dl Creatinine (0.6-1.4) mg/dl Est Cr Clr Drug Dosing ml/min Est GFR ( Amer) ml/min Est GFR (Non-Af Amer) ml/min BUN/Creatinine Ratio (10-20) Glucose (70-99) mg/dl Calcium (8.5-10.1) mg/dl Total Bilirubin (0.2-1) mg/dl AST (15-37) U/L ALT (12-78) U/L Alkaline Phosphatase (45-117) U/L Total Protein (6.4-8.2) gm/dl Albumin (3.4-5.0) gm/dl Globulin (2.5-4.0) gm/dl Albumin/Globulin Ratio (0.9-2) SARS-CoV-2, RNA, NAAT (NEGATIVE) Blood Type O Positive Antibody Screen NEGATIVE Crossmatch See Detail 06/09/21 06/09/21 Range/Units 11:56 13:00 WBC (4.8-10.8) K/uL RBC (4.7-6.1) M/uL Hgb (14.0-18.0) g/dL Hct (42-52) % MCV (80-100) fL MCH (25-34) pg MCHC (32-36) g/dL RDW Std Deviation (36.4-46.3) fL RDW Coeff of Jerry (11.5-14.5) % Plt Count (130-400) K/uL MPV (7.4-10.4) fL PT (9.0-12.0) Seconds INR (0.9-1.1) APTT (21.0-31.0) Seconds PTT Ratio Sodium 141 (136-145) mmol/L Potassium 4.4 (3.5-5.1) mmol/L Chloride 108 H (98-107) mmol/L Carbon Dioxide 25 (21-32) mmol/L Anion Gap 7.0 (3-11) BUN 43 H (7-18) mg/dl Creatinine 1.23 (0.6-1.4) mg/dl Est Cr Clr Drug Dosing 99.3 ml/min Est GFR ( Amer) 80.5 ml/min Est GFR (Non-Af Amer) 69.5 ml/min BUN/Creatinine Ratio 34.7 H (10-20) Glucose 121 H (70-99) mg/dl Calcium 8.5 (8.5-10.1) mg/dl Total Bilirubin 0.3 (0.2-1) mg/dl AST 23 (15-37) U/L ALT 35 (12-78) U/L Alkaline Phosphatase 77 (45-117) U/L Total Protein 6.5 (6.4-8.2) gm/dl Albumin 3.4 (3.4-5.0) gm/dl Globulin 3.1 (2.5-4.0) gm/dl Albumin/Globulin Ratio 1.1 (0.9-2) SARS-CoV-2, RNA, NAAT NEGATIVE (NEGATIVE) Blood Type Antibody Screen Crossmatch Administered Medications Pantoprazole Sodium 40 mg/ (Dextrose) 100 mls @ 20 mls/hr IV Q5H ALEJANDRINA Stop: 07/09/21 14:44 Last Admin: 06/09/21 15:40 Dose: 8 mg/hr, 20 mls/hr Documented by: [id number] Discontinued Medications Sodium Chloride (Nss) 500 mls @ 999 mls/hr IV .Q31M STA Stop: 06/09/21 12:17 Last Infusion: 06/09/21 12:47 Dose: 0 mls/hr Documented by: [id number] Admin: 06/09/21 12:03 Dose: 999 mls/hr Documented by: [id number] Pantoprazole Sodium 80 mg/ (Dextrose) 120 mls @ 400 mls/hr IV NOW ONE Stop: 06/09/21 14:47 Last Infusion: 06/09/21 15:23 Dose: 0 mls/hr Documented by: [id number] Admin: 06/09/21 15:05 Dose: 400 mls/hr Documented by: [id number] Imaging Data Radiologist's Impression: Chest X-Ray 06/09/21 12:55 XR chest 1V portable CLINICAL HISTORY: SOB. COMPARISON STUDY: 05/29/2018 TECHNIQUE: 1 view of the chest FINDINGS: Single frontal view of the chest demonstrates the cardiomediastinal silhouette to be within normal limits. The lungs are clear of alveolar opacities. There is no evidence for pleural effusion. There is no evidence for vascular congestion. There is no acute osseous pathology. IMPRESSION: No acute cardiopulmonary disease. ACT 112: Negative or not required by law. Electronically signed by: Hardy Feliciano M.D. 06/09/2021 1:06 PM Discharge Plan Visit Data Chief Complaint: Rectal Bleed Stated Complaint: DIZZY/BLOODY STOOL ED Provider: Remy Turner Discharge Problem: Acute lower GI bleeding, Anemia Patient Disposition: Being Evaluated by Hospitalist Forms Stand Alone Forms: [facility] [employer] Prescriptions Prescriptions: No Action sildenafil (pulm.hypertension) [Revatio] 20 mg Tablet 40 mg PO UD PRN (Reason: Sexual Activity) RF: 0 allopurinol 100 mg Tablet 150 mg PO QAM RF: 0 acetaminophen [Tylenol Extra Strength] 500 mg Tablet 1,000 mg PO Q6H PRN (Reason: Pain) RF: 0 ibuprofen 200 mg Tablet 800 mg PO Q6H PRN (Reason: Pain) RF: 0 amlodipine 5 mg tablet 5 mg PO QAM RF: 0 lisinopril 30 mg tablet 30 mg PO QAM RF: 0 celecoxib 100 mg capsule 100 mg PO QAM RF: 0 Referrals Referrals: Lui Benavides, DO [Primary Care Provider] -
--- NOTE | 2021-06-09 13:08 | XRay Report ---
XR chest 1V portable CLINICAL HISTORY: SOB. COMPARISON STUDY: 05/29/2018 TECHNIQUE: 1 view of the chest FINDINGS: Single frontal view of the chest demonstrates the cardiomediastinal silhouette to be within normal li mits. The lungs are clear of alveolar opacities. There is no evidence for pleural effusion. There is no evidence for vascular congestion. There is no acute osseous pathology. IMPRESSION: No acute cardiopulmonary disease. ACT 112: Negative or not required by law. Electronically signed by: Hardy Feliciano M.D. 06/09/2021 1:06 PM
--- NOTE | 2021-06-09 13:55 | History & Physical Report ---
Date of Service June 09, 2021 Assessment & Plan (1) Rectal bleeding: (2) Anemia: Plan: Patient is 45-year-old male with PMH HTN, chronic bilateral knee pain, gout presented to ER with complaint of maroon bloody stools, lower abdominal pain x 3 days. No further BM since 11 PM yesterday, denies hematemesis. Takes Celebrex daily however past 3 days has been taking 800 mg of ibuprofen 4 times a day In ER patient afebrile, P: 114 down to 85, BP 100/57, and percent on room air. WBC: 12, Hgb: 9.4 (was 14 on 06/07/2021), BUN: 43, Cr: 1.2 In ER given 500 mL NSS Possible UGI bleed Clear liquid diet for now NPO midnight Start PPI bolus and drip Repeat H&H Q6H Type and Cross and Hold Avoid NSAIDs GI consult, recommend NPO midnight and PPI drip CBC, BMP in am (3) Hypertension: Plan: SBP in 100's in ER Will hold home amlodipine and lisinopril currently (4) Radicular low back pain: Plan: Chronic Back pain and bilateral leg pain Hold NSAIDs Tylenol prn pain DVT Prophylaxis SCDs Full Code as per discussion with pt Follows with Dr Lui Benavides for routine care Pt was seen and care coordinated with Dr Sifuentes. See addendum History of Present Illness Chief Complaint: Rectal bleeding Primary Care Provider: Lui Benavides DO Patient is 45-year-old male with PMH HTN, chronic back pain and chronic bilateral knee pain, gout presented to ER with complaint of bloody stools. Patient reports 3 days ago had onset of lower abdominal pain with bloody loose stools. Was seen in ER late 06/07/2021 for abdominal pain and bloody BMs. During that visit had hemoglobin of 14, CT abdomen pelvis: Grossly unremarkable and patient was discharged home. Reports continued abdominal discomfort and bloody BMs described as maroon in color. Reports yesterday had approximately 1 BM hourly from 11 AM to 11 PM. Reports vomited and denies any hematemesis or coffee-ground emesis. No further BM since 11 PM. Complains of dizziness and near syncope today, as well as nausea. Did eat a sandwich earlier today. Patient reports has been taking Celebrex daily however past 3 days has been taking 800 mg of ibuprofen 4 times a day. Denies fever/chills, diaphoresis, syncope, vision changes, neck pain, CP, SOB, orthopnea, palpitations, cough, sore throat, choking, otalgia, rhinorrhea, paresthesias, weakness, extremity weakness, extremity edema, rashes, urinary symptoms. Denies ill contacts, recent travel. In ER patient afebrile, P: 114 down to 85, BP 100/57, and percent on room air. WBC: 12, Hgb: 9.4 (was 14 on 06/07/2021), BUN: 43, Cr: 1.2 In ER given 500 mL NSS Allergies Allergy/AdvReac Type Severity Reaction Status Date / Time No Known Allergies Allergy Verified 06/09/21 14:05 Home Medications Medication Instructions Recorded Confirmed Type sildenafil (pulm.hypertension) 20 40 mg PO UD PRN 04/29/19 06/09/21 History mg tablet (Revatio) amlodipine 5 mg tablet 5 mg PO QAM 06/07/21 06/09/21 History celecoxib 100 mg capsule 100 mg PO QAM 06/07/21 06/09/21 History lisinopril 30 mg tablet 30 mg PO QAM 06/07/21 06/09/21 History acetaminophen 500 mg tablet 1,000 mg PO Q6H PRN 06/09/21 06/09/21 History (Tylenol Extra Strength) allopurinol 100 mg tablet 150 mg PO QAM 06/09/21 06/09/21 History ibuprofen 200 mg tablet 800 mg PO Q6H PRN 06/09/21 06/09/21 History Past Med/Surg History Medical History (Updated 06/09/21 @ 17:29 by Remy Turner DO) Bronchitis hx of---reason for inhaler Chronic back pain Depression Gout Hearing deficit History of anesthesia reaction difficulty waking with last back surgery Hyperlipidemia Hypertension Hypothyroidism Morbid obesity with BMI of 45.0-49.9, adult Sleep apnea bipap Surgical History History of appendectomy History of endoscopic sinus surgery History of lumbar discectomy History of lumbar spinal fusion x2 History of repair of left rotator cuff History of tonsillectomy and adenoidectomy History of wisdom tooth extraction Status post tendon repair x2--left pectoral and right pectoral Family History Mother Family history of diabetes mellitus Grandfather (Maternal) Family history of esophageal cancer Grandfather (Paternal) Family hx of colon cancer Father Family hx colonic polyps Other No family history of adverse response to anesthesia Social History (Updated 06/09/21 @ 15:46 by Hyun Peguero PA-C) Smoking Status: Former smoker Second Hand Exposure: Yes ( smokes); Hx Alcohol Use: No Hx Substance Use: No Preferred Language: Yi Communication Ability: Effective Laboratory Miller Required: No Beliefs That Will Affect Care: None Current Living Situation: Spouse and Family Current Living Situation Comment: Lives with and 2 kids Feels Safe at Home: Yes Assistive Devices: BiPap Review of Systems Review of Systems: All systems reviewed & are unremarkable except as noted in HPI & below Physical Exam Physical Exam: General: no distress, obese Head: normocephalic, atraumatic Eyes: PERRL, EOM's intact, conjunctiva non-injected, anicteric ENT: normal inspection external ears, nose, mucous membranes mildly dry Neck: supple, trachea midline Lungs: clear, no respiratory distress, no wheezing/rhonchi/rales CV: RRR, no murmur, no pretibial edema Abd: normal BS, soft, + mild tenderness palpation right abdomen without rebound or guarding Ext: no cyanosis, no calf tenderness Neuro: A&O x 3, no focal deficits noted, normal affect Skin: warm, dry Results & Data Results & Data ([facility]) Vital Signs (Past 12 Hours) Vital Signs Temp Pulse Pulse Resp BP BP Pulse Ox 06/09/21 13:00 85 15 109/57 L 98 06/09/21 12:52 93 H 93 H 14 106/55 L 96 06/09/21 11:46 36.7 C 114 H 18 100/57 L 100 Laboratory Results Short CBC 06/09/21 Range/Units 11:56 WBC 12.77 H (4.8-10.8) K/uL Hgb 9.4 L D (14.0-18.0) g/dL Hct 28.7 L (42-52) % Plt Count 342 (130-400) K/uL BMP 06/09/21 11:56 Sodium 141 Potassium 4.4 Chloride 108 H Carbon Dioxide 25 BUN 43 H Creatinine 1.23 Glucose 121 H Calcium 8.5 Liver Function 06/09/21 Range/Units 11:56 Total Bilirubin 0.3 (0.2-1) mg/dl AST 23 (15-37) U/L ALT 35 (12-78) U/L Alkaline Phosphatase 77 (45-117) U/L Albumin 3.4 (3.4-5.0) gm/dl Diagnostic Findings Chest X-Ray 06/09/21 12:55 XR chest 1V portable CLINICAL HISTORY: SOB. COMPARISON STUDY: 05/29/2018 TECHNIQUE: 1 view of the chest FINDINGS: Single frontal view of the chest demonstrates the cardiomediastinal silhouette to be within normal limits. The lungs are clear of alveolar opacities. There is no evidence for pleural effusion. There is no evidence for vascular congestion. There is no acute osseous pathology. IMPRESSION: No acute cardiopulmonary disease. ACT 112: Negative or not required by law. Electronically signed by: Hardy Feliciano M.D. 06/09/2021 1:06 PM Supervising Physician Co-Signing Physician Notes 45-year-old gentleman with PMH of herniated lumbar disks with radicular low back pain, HTN, appendectomy, bronchitis presented to the ED 06/09 with complaint of bloody bowel movement. Patient was recently here in the ED in 06/07 with the same complaint and was discharged to home after complete work-up. This time, he had maroon-colored bloody bowel movement almost every hour from 11 AM to 11 PM yesterday [06/08]. He reports no further bloody bowel movement up till now leading up to bedside exam. He reports no belly pain. Denies fresh red blood. Also reports head ache/dizziness. Denies chest pain/palpitation. Denies fever in the last week. Denies pain or burning with passing urine. Patient reports taking 4 tabs of ibuprofen twice a day for his bilateral knee pain and low back pain, reports not using Tums and Protonix. But when he uses Tums, reports relief of belly pain. At presentation, he dropped his hemoglobin to 9.4 from 14.1 from 2 days ago. His blood pressure is on the softer side. Likely upper GI bleeding, possibly need for scope, GI consult, clear liquid per GI, n.p.o. midnight, NSS at 80 mils an hour, H&H every 6 hour. Transfuse for Hem oglobin <8.0. Protonix drip. Hold blood pressure medications for concerns of bleed and low blood pressure. Upon Exam: GENERAL: Alert and oriented x3. NAD, on RA. HEENT: No pallor, no icterus. Pupils equal, round and reactive to light. Oral mucosa moist. NECK: No JVD, no neck masses. HEART: S1 and S2 heard. Regular rate and rhythm. No murmur, no gallop. RESPIRATORY SYSTEM: Normal AP diameter. No accessory muscle use. No wheezing, no crackles. ABDOMEN: Soft, bowel sounds present, mild low belly tender, no distention. CENTRAL NERVOUS SYSTEM: Alert and oriented x3. No facial droop. Speech is clear. Obeys simple commands. Moves extremities. EXTREMITIES: No edema, no erythema seen. I have seen and examined the patient and have discussed the case with the provider above. I agree with the assessment and plan as stated.
[2021-06-09] MEDS ORDERED: SODIUM CHLORIDE 0.9% 250 ML IV PRN (14:02)
[2021-06-09] MEDS ORDERED: PANTOPRAZOLE BOLUS/DRIP 1 EA IV STA ×2 (14:18→14:19)
[2021-06-09] MEDS ORDERED: PANTOprazole 80 MG in DEXTROSE 5% 100 ML IV ONE ×2 (14:19→14:30)
--- NOTE | 2021-06-09 14:20 | Gastrointestinal Consultation ---
Date of Consultation June 09, 2021 Assessment & Plan (1) Anemia: (2) Rectal bleeding: Pt is a 45 y/o male w c/o RUQ abd pain, n/v, loose stools, then started to have rectal bleeding x 2 days ago. Initial ED visit for symptoms 2 days ago reviewed - no anemia or acute CT scan finding. He returns to ED today w similar symptoms and weakness. Noted drop in blood ct, elevated BUN on his labs. + NSAIDs and celebrex use but no signs of melena or hemematesis/coffee ground emesis (emesis looks greenish per his account), thus suspect less likely PUD w bleeding. Hx of hemorrhoids and diverticula on colonoscopy, CT thus bleed may be related to either of these. Otherwise may also have bacterial GI infection given loose stools. - PPI bolus and gtt to cover possible ulcer disease - Avoid NSAIDs - Stool cx, Cdiff to r/o infections - Repeat CT abd/pelvis if having increased abd pain - NPO after midnight. Will sign out to covering GI provider over the weekend (Dr. Jd Minaya) to re-eval for possible inpt endoscopic evals if pt continues to have GI bleeding. Endoscopy deferred today as pt just ate a sandwich prior to coming to ED History of Present Illness Reason for Consultation: GI bleed Requesting Physician: Hyun Au PA-C Attending Physician: Dr. Yared Pruitt History of Present Illness Pt is a 45 y/o male, who presented to ED w c/o weakness and rectal bleeding x 2 days. He reports since earlier this week he's had upset stomach and loose st ools. 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 He has associated RUQ abd discomfort, n/v. Denies hematemesis, coffee ground emesis. He was in ED 2 days ago when this happened. Labs showed normal blood ct at that time. Today's labs showed Hgb dropped 5 points 14 ->9, BUN was 43. CT abd/pelvis on prior ED visit 2 days ago w/o acute findings though he has diverticulosis. Colonoscopy in 2019 w int hemorrhoids and polyps findings. He denies sick contact, recent antibx, raw/undercooked foods. He takes Celebrex and Ibuprofen for generalized aches. Denies tobacco or ETOh uses Grandfather w hx of colon ca in 60s. Allergies Allergy/AdvReac Type Severity Reaction Status Date / Time No Known Allergies Allergy Verified 06/09/21 14:05 Home Medications Medication Instructions Recorded Confirmed Type indomethacin 50 mg capsule 50 mg PO TID PRN 04/29/19 06/09/21 History sildenafil (pulm.hypertension) 20 40 mg PO UD PRN 04/29/19 06/09/21 History mg tablet (Revatio) amlodipine 5 mg tablet 5 mg PO QAM 06/07/21 06/09/21 History celecoxib 100 mg capsule 100 mg PO QAM 06/07/21 06/09/21 History lisinopril 30 mg tablet 30 mg PO QAM 06/07/21 06/09/21 History acetaminophen 500 mg tablet 2,000 mg PO Q6H PRN 06/09/21 06/09/21 History (Tylenol Extra Strength) allopurinol 100 mg tablet 150 mg PO QAM 06/09/21 06/09/21 History Patient History Medical History (Updated 06/09/21 @ 14:25 by MAGDALENO Florentino) Bronchitis hx of---reason for inhaler Chronic back pain Depression Gout Hearing deficit History of anesthesia reaction difficulty waking with last back surgery Hyperlipidemia Hypertension Hypothyroidism Morbid obesity with BMI of 45.0-49.9, adult Sleep apnea bipap Surgical History History of appendectomy History of endoscopic sinus surgery History of lumbar discectomy History of lumbar spinal fusion x2 History of repair of left rotator cuff History of tonsillectomy and adenoidectomy History of wisdom tooth extraction Status post tendon repair x2--left pectoral and right pectoral Family History Mother Family history of diabetes mellitus Grandfather (Maternal) Family history of esophageal cancer Grandfather (Paternal) Family hx of colon cancer Father Family hx colonic polyps Other No family history of adverse response to anesthesia Social History Smoking Status: Never smoker Cigarettes Per Day: 1 cig a day; Second Hand Exposure: Yes ( smokes); Hx Alcohol Use: Yes Alcohol type: beer Hx Substance Use: No Preferred Language: Egyptian Communication Ability: Effective Us Marketing Director Required: No Beliefs That Will Affect Care: None Current Living Situation: Spouse and Family Current Living Situation Comment: Lives with and 2 kids Feels Safe at Home: Yes Assistive Devices: BiPap Review of Systems Review of Systems: All systems reviewed & are unremarkable except as noted in HPI & below Constitutional: as per Subjective / HPI Gastrointestinal: as per Subjective / HPI Physical Exam Constitutional: WD/WN, vitals as above well groomed, cooperative and comfortable Eyes: PERRL, conjunctivae normal, anicteric sclerae ENMT: external ear and nose normal, oropharynx normal Respiratory: normal respiratory effort, lungs clear to auscultation Cardiovascular: RRR, no murmur, no edema Gastrointestinal (Abdomen): normal bowel sounds, soft, nontender, no hepatosplenomegaly ED physician's noted gross blood per rectum on rectal exam Skin: no rashes, warm and dry no jaundice Psychiatric: A+Ox3, euthymic affect Lymphatic: no lymphedema Results & Data ([facility]) Vital Signs (Past 12 Hours) Vital Signs Temp Pulse Pulse Resp BP BP Pulse Ox 06/09/21 14:10 82 15 97 06/09/21 14:00 87 15 97 06/09/21 13:50 91 H 17 99 06/09/21 13:40 85 15 96 06/09/21 13:30 93 H 16 98 06/09/21 13:20 91 H 21 98 06/09/21 13:10 88 15 94 06/09/21 13:00 85 15 109/57 L 98 06/09/21 12:52 93 H 93 H 14 106/55 L 96 06/09/21 11:46 36.7 C 114 H 18 100/57 L 100
[2021-06-09] MEDS ORDERED: PANTOprazole 40 MG in DEXTROSE 5% 100 ML IV SCH (14:45)
[2021-06-09] MEDS: PANTOprazole 40 MG in DEXTROSE 5% 100 ML IV SCH ×2 (15:40→20:33)
[2021-06-09 19:42] LABS: Hematocrit (blood only) 25.5 % (42-52); Hemoglobin 8.3 g/dL (14.0-18.0)
[2021-06-09] MEDS ORDERED: ONDANSETRON INJ 2 MG/ML 2 ML VIAL IV PRN (21:02)
[2021-06-09] MEDS: SODIUM CHLORIDE 0.9% 1000ML 1,000 ML IV SCH (21:29)
[2021-06-10] MEDS: PANTOprazole 40 MG in DEXTROSE 5% 100 ML IV SCH ×5 (01:16→21:12)
[2021-06-10 02:24] LABS: Hematocrit (blood only) 22.7 % (42-52); Hemoglobin 7.4 g/dL (14.0-18.0)
[2021-06-10] MEDS: ACETAMINOPHEN 325 MG TAB PO PRN (02:34)
[2021-06-10] MEDS ORDERED: METOCLOPRAMIDE HCL INJ 5 MG/ML 2 ML VIAL IV STA (05:54)
--- NOTE | 2021-06-10 05:54 | Gastroenterology Progress Note ---
Date of Service June 10, 2021 Assessment & Plan (1) Acute blood loss anemia: (2) Bloody stools: Plan: Proceed with EGD now Continue Protonix gtt at 8 mg/hour Continue supportive care Further recommendations will follow above noted testing. Admission and Anticipated Discharge Date Admission Date: June 09, 2021 Subjective Complaining of slight midepigastric pain. He denies any overt GI bleeding overnight, including no hematemesis, melena, or hematochezia. He has had a further drop in H/H to 7.4/22.7. He admits to taking NSAID's at home, and was previously on Ranitidine therapy, but had stopped this, "awhile ago, because I wasn't having any heartburn." He denies any fevers, chills, nausea, vomiting, or other complaints at present. Review of Systems Constitutional: as per Subjective / HPI Eyes: as per Subjective / HPI Ear, Nose, Mouth, Throat: as per Subjective / HPI Respiratory: as per Subjective / HPI Cardiovascular: as per Subjective / HPI Gastrointestinal: as per Subjective / HPI Musculoskeletal: as per Subjective / HPI Integumentary: as per Subjective / HPI Neurologic: as per Subjective / HPI Psychiatric: as per Subjective / HPI Endocrine: as per Subjective / HPI Hematologic / Lymphatic: as per Subjective / HPI Allergy / Immunological: as per Subjective / HPI Physical Exam Constitutional: WD/WN, vitals as above Respiratory: normal respiratory effort, lungs clear to auscultation Cardiovascular: RRR, no murmur, no edema Gastrointestinal (Abdomen): Inspection/Auscultation: abdomen normal to inspection; abdomen not distended Percussion/Palpation: + abdomen tender (Midepigastric area) and abdomen soft; no hepatosplenomegaly Skin: + pallor Psychiatric: A+Ox3, euthymic affect Results & Data Results & Data ([facility]) Vital Signs (Past 12 Hours) Vital Signs Temp Pulse Pulse Resp BP BP Pulse Ox 06/10/21 02:04 79 06/10/21 00:50 14 97 06/09/21 21:29 36.6 C 95 H 26 H 146/83 H 100 06/09/21 18:40 90 20 115/70 97 06/09/21 18:30 88 24 99 06/09/21 18:20 82 15 97 11/26/21 18:10 82 14 99 06/09/21 18:00 82 15 97 06/09/21 17:50 89 24 100 PG Care Time/CCT Total # of Minutes Spent Total Time Spent with Patient: Total time spent is greater than 50% in coordination of care (as documented) at patient's floor/unit and/or counseling patient: Coding Level of Care Code 93137 Subseq Hosp Care Lvl 3 Diagnoses Acute blood loss anemia D62 Bloody stools K92.1
[2021-06-10] MEDS ORDERED: ONDANSETRON INJ 2 MG/ML 2 ML VIAL IV PRN (06:12)
[2021-06-10] MEDS ORDERED: ATROPINE SULFATE 0.1 MG/ML 10ML SYR IV PRN (06:12)
[2021-06-10] MEDS ORDERED: fentaNYL citrate 100 MCG/2 ML VIAL IV PRN (06:12)
[2021-06-10] MEDS ORDERED: ePHEDrine sulfate 50 MG/ML AMP IV PRN (06:12)
--- NOTE | 2021-06-10 06:12 | Anesthesiology Consultation ---
Date of Service June 10, 2021 Assessment & Plan ASA ASA3E Proposed Anesthesia Anesthesia Type: MAC Risk / Benefits Reviewed With: PT / POA / Parent / Guardian, Accepts Plan and Informed Consent Obtained History Surgery Operation Date: 06/10/21 05:25 Proposed Procedures p Esophagogastroduodenoscopy - Jd GTimur Case, DO Height/Weight Height: 5 ft 10 in Weight: 125.6 kg Allergies Allergy/AdvReac Type Severity Reaction Status Date / Time No Known Allergies Allergy Verified 06/09/21 14:05 Medications Home Medications Medication Instructions Recorded Confirmed Last Taken sildenafil (pulm.hypertension) 20 40 mg PO UD PRN 04/29/19 06/09/21 Unknown mg tablet (Revatio) amlodipine 5 mg tablet 5 mg PO QAM 06/07/21 06/09/21 06/09/21 celecoxib 100 mg capsule 100 mg PO QAM 06/07/21 06/09/21 06/07/21 lisinopril 30 mg tablet 30 mg PO QAM 06/07/21 06/09/21 06/09/21 acetaminophen 500 mg tablet 1,000 mg PO Q6H PRN 06/09/21 06/09/21 06/08/21 (Tylenol Extra Strength) 2000 mg allopurinol 100 mg tablet 150 mg PO QAM 06/09/21 06/09/21 06/09/21 ibuprofen 200 mg tablet 800 mg PO Q6H PRN 06/09/21 06/09/21 06/08/21 Active Medications Generic Name Dose Route Start Last Admin Trade Name Freq PRN Reason Stop Dose Admin Acetaminophen 650 mg 06/09/21 21:02 06/10/21 02:34 Acetaminophen 325 Mg Tab PO 07/09/21 21:01 650 mg Q4H PRN Administration Pain or Fever Pantoprazole Sodium 40 mg/ 100 mls @ 20 mls/hr 06/09/21 14:45 06/10/21 05:37 Dextrose IV 07/09/21 14:44 8 mg/hr Q5H ALEJANDRINA 20 mls/hr Administration 8 MG/HR Sodium Chloride 1,000 mls @ 100 mls/hr 06/09/21 21:02 06/09/21 21:29 Nss 1000ml IV 06/10/21 17:01 100 mls/hr .Q10H ALEJANDRINA Administration NPO Date Last Intake of Fluids: 06/10/21 Time Last Intake of Fluids: 00:00 Date Last Intake of Solids: 06/10/21 Time Last Intake of Solids: 00:00 Past Medical History Medical History (Updated 06/10/21 @ 05:53 by Jd Minaya, DO) Bronchitis hx of---reason for inhaler Chronic back pain Depression Gout Hearing deficit History of anesthesia reaction difficulty waking with last back surgery Hyperlipidemia Hypertension Hypothyroidism Morbid obesity with BMI of 45.0-49.9, adult Sleep apnea bipap Exercise / Class Metabolic Activity II 4-5 Yardwork/Stairs/Walk up hill Past Family History Family History Mother Family history of diabetes mellitus Grandfather (Maternal) Family history of esophageal cancer Grandfather (Paternal) Family hx of colon cancer Father Family hx colonic polyps Other No family history of adverse response to anesthesia Past Surgical History Surgical History History of appendectomy History of endoscopic sinus surgery History of lumbar discectomy History of lumbar spinal fusion x2 History of repair of left rotator cuff History of tonsillectomy and adenoidectomy History of wisdom tooth extraction Status post tendon repair x2--left pectoral and right pectoral Past Anesthesia History No Hx of Anesthesia Complications and No Family Hx of Anesthesia Complications History of PONV No Hx of PONV and No Hx of Motion Sickness Social History Smoking Status: Unknown if ever smoked tobacco type: cigarettes Hx Alcohol Use: No Alcohol type: beer alcohol intake frequency: holidays/special occasions only Hx Substance Use: No substance use type: does not use Review of Systems denies fever/cough/ colds/ chest pain/ SOB/ + DONNIE denies DONNIE Physical Exam Vital Signs Last Vital Signs Temp 36.4 C L 06/10/21 05:45 Pulse 87 06/10/21 05:45 Resp 16 06/10/21 05:45 BP 118/72 06/10/21 05:45 Pulse Ox 97 06/10/21 05:45 ENMT Mouth: no TMJ abnormality and no dentition abnormality Thyromental Distance: > or= 3.5 Finger Breadths Mallampati Class: II Neck neck extension not limited Respiratory normal respiratory effort; no respiratory distress Auscultation: lungs clear to auscultation bilaterally Cardiovascular Rate/Rhythm: regular rate and regular rhythm Neurologic moves all extremities Psychiatric Orientation: alert and oriented x 3 Testing Laboratory Results 06/10/21 01:43 06/09/21 11:56 PT 10.3 Seconds (9.0-12.0) 06/09/21 11:56 INR 1.0 (0.9-1.1) 06/09/21 11:56 APTT 23.3 Seconds (21.0-31.0) 06/09/21 11:56 Blood Type O Positive 06/09/21 11:56 Antibody Screen NEGATIVE 06/09/21 11:56
[2021-06-10] MEDS ORDERED: LIDOCAINE 2% 20 MG/ML 5 ML SYR IV ONE (06:42)
[2021-06-10] MEDS ORDERED: PROPOFOL IV EMULSION 10 MG/ML 20 ML VIAL IV ONE ×2 (06:42→06:53)
--- NOTE | 2021-06-10 07:14 | GI REPORT ---
Patient Name: Td Rene Procedure Date: 06/10/2021 6:17 AM Date of : 1975 Admit Type: Inpatient Age: 45 Gender: Male Attending MD: Jd Minaya DO Procedure: Upper GI endoscopy Providers: Jd Minaya DO Referring MD: Referred Self Indications: Acute post hemorrhagic anemia Medicines: Monitored Anesthesia Care Complications: No immediate complications. Estimated Blood Loss: Estimated blood loss: none. Procedure: Pre-Anesthesia Assessment: - Prior to the procedure, a History and Physical was performed, and patient medications and allergies were reviewed. The patient's tolerance of previous anesthesia was also reviewed. The risks and benefits of the procedure and the sedation options and risks were discussed with the patient. All questions were answered, and informed consent was obtained. Prior Anticoagulants: The patient has taken no previous anticoagulant or antiplatelet agents except for NSAID medication. ASA Grade Assessment: III - A patient with severe systemic disease. After reviewing the risks and benefits, the patient was deemed in satisfactory condition to undergo the procedure. After obtaining informed consent, the endoscope was passed under direct vision. Throughout the procedure, the patient's blood pressure, pulse, and oxygen saturations were monitored continuously. The Scope was introduced through the mouth, and advanced to the third part of duodenum. The upper GI endoscopy was accomplished without difficulty. The patient tolerated the procedure well. Findings: The esophagus was normal. The stomach was normal. One spurting cratered duodenal ulcer with a visible vessel was found in the duodenal bulb. The lesion was 10 mm in largest dimension. Area was unsuccessfully injected with 6 mL of a 1:10,000 solution of epinephrine for hemostasis. Fulguration to stop the bleeding by bipolar probe was unsuccessful. For hemostasis, two hemostatic clips were successfully placed (MR conditional). The bleeding did continue, though it was significantly slowed. To stop active bleeding, hemostatic spray was deployed. Four sprays were applied. There was no bleeding at the end of the procedure. Impression: - Normal esophagus. - Normal stomach. - Spurting duodenal ulcer with a visible vessel. Treatment not successful. Treatment not successful. Treated with bipolar cautery. Clips (MR conditional) were placed. hemostatic spray applied. - No specimens collected. Recommendation: - [facility]. - NPO. - Continue present medications including Protonix gtt at 8 mg/hour for 72 hours total. Jd Kamala Minaya, DO 06/10/2021 7:13:31 AM This report has been signed electronically. Note Initiated On: 06/10/2021 6:17 AM Number of Addenda: 0 I attest to the content of the Intraoperative Record and orders documented therein, exceptions below {[id number]}
[2021-06-10] MEDS: allopurinoL 100 MG TAB PO SCH (08:07)
--- NOTE | 2021-06-10 08:42 | Anesthesiology Progress Note ---
Date of Service June 10, 2021 Anesthesia Post Procedure Vital Signs Vital Signs: Temp Pulse Pulse Pulse Resp BP BP 06/10/21 08:00 98.2 F 73 14 128/70 06/10/21 07:50 79 14 132/76 06/10/21 07:40 82 14 147/78 H 06/10/21 07:30 86 14 154/84 H 06/10/21 07:20 83 12 157/90 H 06/10/21 07:19 97.7 F 90 18 167/76 H 06/10/21 05:45 97.5 F L 87 16 118/72 06/10/21 02:04 79 06/10/21 00:50 14 06/09/21 21:29 97.9 F 95 H 26 H 146/83 H 06/09/21 18:40 90 20 115/70 06/09/21 18:30 88 24 06/09/21 18:20 82 15 06/09/21 18:10 82 14 06/09/21 18:00 82 15 06/09/21 17:50 89 24 06/09/21 17:40 86 16 06/09/21 17:30 88 17 06/09/21 17:20 95 H 17 06/09/21 17:10 102 H 15 06/09/21 17:00 84 12 06/09/21 16:50 93 H 12 06/09/21 16:40 90 19 06/09/21 16:30 86 17 06/09/21 16:20 84 12 06/09/21 16:10 84 20 06/09/21 16:00 87 17 113/61 06/09/21 15:50 85 12 06/09/21 15:40 84 16 06/09/21 15:30 89 16 121/60 06/09/21 15:20 92 H 15 06/09/21 15:10 84 16 06/09/21 15:00 16 112/58 L 06/09/21 14:50 87 17 112/58 L 06/09/21 14:40 85 13 06/09/21 14:30 83 21 06/09/21 14:20 99 H 16 06/09/21 14:10 82 15 06/09/21 14:00 87 15 06/09/21 13:50 91 H 17 06/09/21 13:40 85 15 06/09/21 13:30 93 H 16 06/09/21 13:20 91 H 21 06/09/21 13:10 88 15 06/09/21 13:00 85 15 109/57 L 06/09/21 12:52 93 H 93 H 14 106/55 L 06/09/21 11:46 98.1 F 114 H 18 100/57 L Pulse Ox 06/10/21 08:00 96 06/10/21 07:50 97 06/10/21 07:40 100 06/10/21 07:30 100 06/10/21 07:20 98 06/10/21 07:19 98 06/10/21 05:45 97 06/10/21 02:04 06/10/21 00:50 97 06/09/21 21:29 100 06/09/21 18:40 97 06/09/21 18:30 99 06/09/21 18:20 97 06/09/21 18:10 99 06/09/21 18:00 97 06/09/21 17:50 100 06/09/21 17:40 96 06/09/21 17:30 98 06/09/21 17:20 97 06/09/21 17:10 99 06/09/21 17:00 96 06/09/21 16:50 98 06/09/21 16:40 97 06/09/21 16:30 98 06/09/21 16:20 97 06/09/21 16:10 96 06/09/21 16:00 97 06/09/21 15:50 98 06/09/21 15:40 97 06/09/21 15:30 98 06/09/21 15:20 96 06/09/21 15:10 97 06/09/21 15:00 98 06/09/21 14:50 98 06/09/21 14:40 97 06/09/21 14:30 97 06/09/21 14:20 97 06/09/21 14:10 97 06/09/21 14:00 97 06/09/21 13:50 99 06/09/21 13:40 96 06/09/21 13:30 98 06/09/21 13:20 98 06/09/21 13:10 94 06/09/21 13:00 98 06/09/21 12:52 96 06/09/21 11:46 100 Pain Intensity Lower Abdomen: Pain Intensity: 2 Transfer of Care Handoff Completed per policy Notes Mental Status: alert / awake / arousable and participated in evaluation Patient Amnestic to Procedure: Yes Nausea / Vomiting: adequately controlled Pain: adequately controlled Airway Patency, RR, SpO2: stable & adequate BP & HR: stable & adequate Hydration State: stable & adequate Anesthetic Complications: no major complications apparent and Pt Satisfied with anesthetic care
[2021-06-10 09:09] LABS: Hematocrit (blood only) 24.7 % (42-52); Mean Corpuscular Hemoglobin 29.6 pg (25-34); Mean Corpuscular Hgb Conc 32.4 g/dL (32-36); Mean Corpuscular Volume 91.5 fL (80-100); Mean Platelet Volume 10.2 fL (7.4-10.4); Platelet Count 229 K/uL (130-400); RDW Coefficient of Variation 15.1 % (11.5-14.5); RDW Standard Deviation 50.2 fL (36.4-46.3); White Blood Count 8.18 K/uL (4.8-10.8)
[2021-06-10] MEDS: SODIUM CHLORIDE 0.9% 1000ML 1,000 ML IV SCH ×2 (09:09→17:51)
[2021-06-10 09:30] LABS: Calcium 7.9 mg/dl (8.5-10.1); Creatinine Clr Calc Pharmacy 120.3 ml/min; Est GFR (African American) 102.2 ml/min; Est GFR (Non-African American) 88.2 ml/min; Potassium 4.3 mmol/L (3.5-5.1)
[2021-06-10] MEDS ORDERED: ACETAMINOPHEN 1,000 MG/100 ML VIAL IV PRN (11:38)
--- NOTE | 2021-06-10 12:13 | Hospitalist Progress Note ---
Date of Service June 10, 2021 Assessment & Plan (1) Rectal bleeding: (2) Anemia: Plan: 45-year-old male with PMH HTN, chronic bilateral knee pain, gout presented to ER with complaint of maroon bloody stools, lower abdominal pain x 3 days. Takes Celebrex daily however past 3 days has been taking 800 mg of ibuprofen 4 times a day Upper GI bleeding from a duodenal ulcer. Acute blood loss anemia. EGD report noted. Continue IV PPI for the next 72 hours. Keep n.p.o. for now Continue IV fluids Patient counseled to avoid NSAIDs. Manage chronic back pain with IV Tylenol and lidocaine patch for now (3) Hypertension: Plan: Stable. Continue to hold home amlodipine and lisinopril (4) Radicular low back pain: Plan: Chronic Back pain and bilateral leg pain Advised to avoid NSAIDs going forward Do IV Tylenol for now while n.p.o. Lidocaine patch DVT Prophylaxis SCDs Admission and Anticipated Discharge Date Admission Date: June 09, 2021 Subjective 45-year-old male with PMH HTN, chronic back pain and chronic bilateral knee pain, gout presented to ER with complaint of bloody stools Being managed for upper GI bleed with acute blood loss anemia. Patient seen and examined today. Had EGD this morning which showed spurting cratered duodenal ulcer with visible vessel status post two clips and hemostatic spray. Patient also got one PRBC during procedure. Seen and examined afterwards. Reports sore throat due to procedure. Denies any chest pain, cough, shortness of breath Denies any nausea, vomiting, dizziness, palpitations, weakness. Denies any abdominal pain. Yet to have a bowel movement. Denies any dysuria, frequency, urgency Physical Exam Constitutional: + well hydrated and + obese; no acute distress Eyes: PERRL, conjunctivae normal, anicteric sclerae ENMT: external ear and nose normal, oropharynx normal Respiratory: normal respiratory effort, lungs clear to auscultation Cardiovascular: RRR, no murmur, no edema Gastrointestinal (Abdomen): normal bowel sounds, soft, nontender, no hepatosplenomegaly Musculoskeletal: no cyanosis or clubbing, extremities motor strength 5/5 Neurologic: PERRL, EOMI, accommodation nl, no face palsy, no dysarthria Results & Data Results & Data ([facility]) Vital Signs (Past 12 Hours) Vital Signs Temp Pulse Pulse Pulse Resp BP BP 06/10/21 11:53 36.4 C L 78 20 137/81 06/10/21 08:33 36.5 C 76 14 121/64 06/10/21 08:00 36.8 C 73 14 128/70 06/10/21 07:50 79 14 132/76 06/10/21 07:40 82 14 147/78 H 06/10/21 07:30 86 14 154/84 H 06/10/21 07:20 83 12 157/90 H 06/10/21 07:19 36.5 C 90 18 167/76 H 06/10/21 05:45 36.4 C L 87 16 118/72 06/10/21 02:04 79 06/10/21 00:50 14 Pulse Ox 06/10/21 11:53 97 06/10/21 08:33 95 06/10/21 08:00 96 06/10/21 07:50 97 06/10/21 07:40 100 06/10/21 07:30 100 06/10/21 07:20 98 06/10/21 07:19 98 06/10/21 05:45 97 06/10/21 02:04 06/10/21 00:50 97 Laboratory Results Abnormal lab results 06/09/21 06/09/21 06/09/21 Range/Units 11:56 11:56 19:33 RBC (4.7-6.1) M/uL Hgb 8.3 L (14.0-18.0) g/dL Hct 25.5 L (42-52) % RDW Std Deviation (36.4-46.3) fL RDW Coeff of Jerry (11.5-14.5) % Chloride 108 H (98-107) mmol/L BUN 43 H (7-18) mg/dl BUN/Creatinine Ratio 34.7 H (10-20) Glucose 121 H (70-99) mg/dl Calcium (8.5-10.1) mg/dl Crossmatch See Detail 06/10/21 06/10/21 06/10/21 Range/Units 01:43 08:48 08:48 RBC 2.70 L (4.7-6.1) M/uL Hgb 7.4 L 8.0 L (14.0-18.0) g/dL Hct 22.7 L 24.7 L (42-52) % RDW Std Deviation 50.2 H (36.4-46.3) fL RDW Coeff of Jerry 15.1 H (11.5-14.5) % Chloride 111 H (98-107) mmol/L BUN 27 H (7-18) mg/dl BUN/Creatinine Ratio 27.0 H (10-20) Glucose (70-99) mg/dl Calcium 7.9 L (8.5-10.1) mg/dl Crossmatch
[2021-06-10] MEDS: LIDOCAINE 5% 1 PATCH TD SCH (12:38)
[2021-06-10] MEDS ORDERED: MoRPHine SULFATE 2 MG/ML CARP IV PRN (14:04)
[2021-06-10] MEDS: ACETAMINOPHEN 1,000 MG/100 ML VIAL IV SCH ×2 (14:17→21:31)
[2021-06-10] MEDS ORDERED: Influenza Vaccine (Fluarix) 0.5 ML SYR (Standard Dose) IM ONE (20:00)
[2021-06-11] MEDS: PANTOprazole 40 MG in DEXTROSE 5% 100 ML IV SCH ×5 (02:18→21:31)
[2021-06-11] MEDS: SODIUM CHLORIDE 0.9% 1000ML 1,000 ML IV SCH ×2 (04:42→15:54)
[2021-06-11] MEDS: ACETAMINOPHEN 1,000 MG/100 ML VIAL IV SCH (05:23)
[2021-06-11 06:42] LABS: Hemoglobin 8.1 g/dL (14.0-18.0); Mean Corpuscular Hemoglobin 29.8 pg (25-34); Mean Corpuscular Hgb Conc 32.4 g/dL (32-36); Mean Corpuscular Volume 91.9 fL (80-100); Mean Platelet Volume 9.8 fL (7.4-10.4); Platelet Count 226 K/uL (130-400); RDW Standard Deviation 49.6 fL (36.4-46.3); Red Blood Count 2.72 M/uL (4.7-6.1); White Blood Count 6.68 K/uL (4.8-10.8)
[2021-06-11 07:25] LABS: BUN Creatinine Ratio 16.9 (10-20); Calcium 8.5 mg/dl (8.5-10.1); Creatinine Clr Calc Pharmacy 117.5 ml/min; Est GFR (African American) 99.8 ml/min; Est GFR (Non-African American) 86.1 ml/min; Magnesium 2.1 mg/dl (1.8-2.4)
[2021-06-11] MEDS: LIDOCAINE 5% 1 PATCH TD SCH (07:49)
[2021-06-11] MEDS: allopurinoL 100 MG TAB PO SCH (07:49)
--- NOTE | 2021-06-11 08:06 | Gastroenterology Progress Note ---
Date of Service June 11, 2021 Assessment & Plan (1) Acute blood loss anemia: (2) Bloody stools: (3) Duodenal ulcer: Plan: Continue Protonix gtt for 72 hours Check for H. pylori stool Ag Advance diet to full liquids today Will need Pantoprazole 40 mg by mouth twice daily when ready for discharge Will need repeat EGD in 8 weeks to ensure ulcer healing. Admission and Anticipated Discharge Date Admission Date: June 09, 2021 Subjective Feeling better this AM. Asking to eat. No BM's since his arrival. No abdominal pain, fevers, chills, nausea, vomiting or hematemesis. He states he feels weak, but has no further complaints. Review of Systems Constitutional: as per Subjective / HPI Eyes: as per Subjective / HPI Ear, Nose, Mouth, Throat: as per Subjective / HPI Respiratory: as per Subjective / HPI Cardiovascular: as per Subjective / HPI Gastrointestinal: as per Subjective / HPI Musculoskeletal: as per Subjective / HPI Integumentary: as per Subjective / HPI Neurologic: as per Subjective / HPI Psychiatric: as per Subjective / HPI Endocrine: as per Subjective / HPI Hematologic / Lymphatic: as per Subjective / HPI Allergy / Immunological: as per Subjective / HPI Physical Exam Constitutional: WD/WN, vitals as above Eyes: + anicteric sclerae ENMT: external ear and nose normal, oropharynx normal Respiratory: normal respiratory effort, lungs clear to auscultation Cardiovascular: RRR, no murmur, no edema Gastrointestinal (Abdomen): normal bowel sounds, soft, nontender, no hepatosplenomegaly Skin: + pallor Psychiatric: A+Ox3, euthymic affect Results & Data Results & Data ([facility]) Vital Signs (Past 12 Hours) Vital Signs Temp Pulse Pulse Resp BP Pulse Ox 06/11/21 05:30 36.6 C 78 16 149/90 H 97 06/11/21 02:50 69 06/10/21 23:53 36.7 C 61 16 104/55 L 98 06/10/21 20:28 36.5 C 70 16 117/70 94 PG Care Time/CCT Total # of Minutes Spent Total Time Spent with Patient: Total time spent is greater than 50% in coordination of care (as documented) at patient's floor/unit and/or counseling patient: Coding Level of Care Code 03917 Subseq Hosp Care Lvl 3 Diagnoses Acute blood loss anemia D62 Bloody stools K92.1 Duodenal ulcer K26.9
[2021-06-11 14:30] LABS: Adenovirus F 40/41 PCR Not Detected (NotDetected); Astrovirus PCR Not Detected (NotDetected); Campylobacter PCR Not Detected (NotDetected); Clostridium diff Toxin A/B PCR Not Detected (NotDetected); Cryptosporidium PCR Not Detected (NotDetected); Cyclospora cayetanensis PCR Not Detected (NotDetected); Entamoeba histolytica PCR Not Detected (NotDetected); Enteroaggregative E.coli(EAEC) Not Detected (NotDetected); Enteropathogenic E.coli (EPEC) Not Detected (NotDetected); Enterotoxigenic E.coli (ETEC) Not Detected (NotDetected); Giardia lamblia PCR Not Detected (NotDetected); Norovirus GI/GII PCR Not Detected (NotDetected); Plesiomonas shigelloides PCR Not Detected (NotDetected); Rotavirus A PCR Not Detected (NotDetected); Salmonella PCR Not Detected (NotDetected); Sapovirus PCR Not Detected (NotDetected); Shiga-like Toxin E.coli (STEC) Not Detected (NotDetected); Shigella/Enteroinvasive E.coli Not Detected (NotDetected); Vibrio cholerae PCR Not Detected (NotDetected); Vibrio species PCR Not Detected (NotDetected); Yersinia enterocolitica PCR Not Detected (NotDetected)
--- NOTE | 2021-06-11 15:43 | Hospitalist Progress Note ---
Date of Service June 11, 2021 Assessment & Plan (1) Rectal bleeding: (2) Anemia: Plan: 45-year-old male with PMH HTN, chronic bilateral knee pain, gout presented to ER with complaint of maroon bloody stools, lower abdominal pain x 3 days. Takes Celebrex daily however past 3 days has been taking 800 mg of ibuprofen 4 times a day Upper GI bleeding from a duodenal ulcer. Acute blood loss anemia. EGD report noted. Continue IV PPI to complete 72h Started on liquid diet today Stop IVF Patient counseled to avoid NSAIDs. Manage chronic back pain with IV Tylenol and lidocaine patch for now (3) Hypertension: Plan: Stop IVF Monitor BP Resume amlodipine and monitor Hold lisinopril for now (4) Radicular low back pain: Plan: Chronic Back pain and bilateral leg pain Advised to avoid NSAIDs going forward PO tylenol prn Lidocaine patch DVT Prophylaxis SCDs Admission and Anticipated Discharge Date Admission Date: June 09, 2021 Subjective 45-year-old male with PMH HTN, chronic back pain and chronic bilateral knee pain, gout presented to ER with complaint of bloody stools Being managed for upper GI bleed with acute blood loss anemia. Had EGD on 06/10/21 which showed spurting cratered duodenal ulcer with visible vessel status post two clips and hemostatic spray. Patient also got one PRBC during procedure. Patient seen and examined today. Reports feeling better today Denies any chest pain, cough, shortness of breath Denies any nausea, vomiting, dizziness, palpitations, weakness. Denies any abdominal pain. Denies any dysuria, frequency, urgency Physical Exam Constitutional: + well hydrated and + obese; no acute distress Eyes: PERRL, conjunctivae normal, anicteric sclerae ENMT: external ear and nose normal, oropharynx normal Respiratory: normal respiratory effort, lungs clear to auscultation Cardiovascular: RRR, no murmur, no edema Gastrointestinal (Abdomen): normal bowel sounds, soft, nontender, no hepatosplenomegaly Musculoskeletal: no cyanosis or clubbing, extremities motor strength 5/5 Neurologic: PERRL, EOMI, accommodation nl, no face palsy, no dysarthria Results & Data Results & Data ([facility]) Vital Signs (Past 12 Hours) Vital Signs Temp Pulse Resp BP Pulse Ox 06/11/21 11:53 36.7 C 69 19 168/106 H 97 06/11/21 08:21 36.4 C L 64 19 136/73 96 06/11/21 05:30 36.6 C 78 16 149/90 H 97 Laboratory Results Abnormal lab results 06/09/21 06/11/21 06/11/21 Range/Units 11:56 06:21 06:21 RBC 2.72 L (4.7-6.1) M/uL Hgb 8.1 L (14.0-18.0) g/dL Hct 25.0 L (42-52) % RDW Std Deviation 49.6 H (36.4-46.3) fL RDW Coeff of Jerry 15.0 H (11.5-14.5) % Chloride 108 H (98-107) mmol/L Crossmatch See Detail 06/11/21 Range/Units 16:44 RBC (4.7-6.1) M/uL Hgb 8.6 L (14.0-18.0) g/dL Hct 26.2 L (42-52) % RDW Std Deviation (36.4-46.3) fL RDW Coeff of Jerry (11.5-14.5) % Chloride (98-107) mmol/L Crossmatch
[2021-06-11 17:18] LABS: Hematocrit (blood only) 26.2 % (42-52); Hemoglobin 8.6 g/dL (14.0-18.0)
[2021-06-11] MEDS: ACETAMINOPHEN 325 MG TAB PO PRN (20:37)
[2021-06-12] MEDS: PANTOprazole 40 MG in DEXTROSE 5% 100 ML IV SCH ×5 (02:22→22:23)
[2021-06-12 06:58] LABS: Hematocrit (blood only) 26.2 % (42-52); Hemoglobin 8.7 g/dL (14.0-18.0); Mean Corpuscular Hemoglobin 30.2 pg (25-34); Mean Corpuscular Hgb Conc 33.2 g/dL (32-36); Platelet Count 253 K/uL (130-400); RDW Coefficient of Variation 14.7 % (11.5-14.5); RDW Standard Deviation 47.3 fL (36.4-46.3); Red Blood Count 2.88 M/uL (4.7-6.1); White Blood Count 5.82 K/uL (4.8-10.8)
[2021-06-12 07:29] LABS: BUN Creatinine Ratio 11.2 (10-20); Calcium 8.6 mg/dl (8.5-10.1); Est GFR (African American) 91.2 ml/min; Est GFR (Non-African American) 78.7 ml/min; Potassium 3.9 mmol/L (3.5-5.1)
[2021-06-12] MEDS: LIDOCAINE 5% 1 PATCH TD SCH (08:20)
[2021-06-12] MEDS: amLODIPine BESYLATE 5 MG TAB PO SCH (08:20)
[2021-06-12] MEDS: allopurinoL 100 MG TAB PO SCH (08:21)
--- NOTE | 2021-06-12 09:50 | Gastroenterology Progress Note ---
Date of Service June 12, 2021 Assessment & Plan (1) Duodenal ulcer: Plan: -Continue to monitor H/H and for further signs of bleeding -Continue liquid diet for now; If no further bleeding, can consider dietary advancement -Continue Protonix gtt x 72 hours before transitioning to 40 mg BID. -Will need to be d/c'd on Protonix 40 mg BID with plans to undergo a repeat EGD in 3 weeks -Will need to avoid NSAIDs moving forward Admission and Anticipated Discharge Date Admission Date: June 09, 2021 Supervising Physician Co-Signing Physician Notes Agree with JAVED Russo as above Abd: Soft, NT, ND, +BS Doing much better today Asking for increased diet No overt GI bleeding noted Continue Protonix gtt for 72 hours total, then 40 mg PO BID Repeat EGD in 6 weeks to ensure ulcer healing. Subjective Patient is a 45 yo male with a duodenal ulcer found on EGD on 06/10/21. He notes one episode of melena this AM. No bright red blood. His H/H is 8.7/26.2. He is on a PPI gtt and a liquid diet. He denies abdominal pain, nausea, vomiting, heartburn, or diarrhea. No new complaints. Review of Systems Constitutional: no fever and no chills Cardiovascular: no chest pain Gastrointestinal: + melena; no abdominal pain and no blood in stools Physical Exam Constitutional: well developed Respiratory: normal respiratory effort Cardiovascular: Rate/Rhythm: regular rate and regular rhythm Gastrointestinal (Abdomen): Inspection/Auscultation: abdomen normal to inspection Musculoskeletal: Head/Neck/Chest: normocephalic Psychiatric: Orientation: alert and oriented x 3 Results & Data Results & Data ([facility]) Vital Signs (Past 12 Hours) Vital Signs Temp Pulse Pulse Resp BP Pulse Ox 06/12/21 08:57 57 L 06/12/21 07:00 36.8 C 74 16 129/64 98 06/12/21 04:41 36.6 C 61 16 132/79 96 06/12/21 01:34 61 06/11/21 23:30 36.7 C 61 16 146/72 H 96 PG Care Time/CCT Total # of Minutes Spent Total Time Spent with Patient: Total time spent is greater than 50% in coordination of care (as documented) at patient's floor/unit and/or counseling patient: Coding Level of Care Code 67144 Subseq Hosp Care Lvl 3 Diagnoses Duodenal ulcer K26.9
--- NOTE | 2021-06-12 13:03 | Hospitalist Progress Note ---
Date of Service June 12, 2021 Assessment & Plan (1) Rectal bleeding: (2) Anemia: Plan: 45-year-old male with PMH HTN, chronic bilateral knee pain, gout presented to ER with complaint of maroon bloody stools, lower abdominal pain x 3 days. Takes Celebrex daily however past 3 days has been taking 800 mg of ibuprofen 4 times a day Upper GI bleeding from a duodenal ulcer. Acute blood loss anemia. EGD report noted. Continue IV PPI to complete 72h tomorrow Tolerating liquid diet well. Advance to regular diet by dinner if no problems Patient counseled to avoid NSAIDs. (3) Hypertension: Plan: Continue amlodipine Resume home lisinopril (4) Radicular low back pain: Plan: Chronic Back pain and bilateral leg pain Advised to avoid NSAIDs going forward PO tylenol prn Lidocaine patch May need follow up with Pain management if pain persists outpatient on current regimen DVT Prophylaxis SCDs Admission and Anticipated Discharge Date Admission Date: June 09, 2021 Subjective 45-year-old male with PMH HTN, chronic back pain and chronic bilateral knee pain, gout presented to ER with complaint of bloody stools Being managed for upper GI bleed with acute blood loss anemia. Had EGD on 06/10/21 which showed spurting cratered duodenal ulcer with visible vessel status post two clips and hemostatic spray. Patient also got one PRBC during procedure. Patient seen and examined today. Denies any chest pain, cough, shortness of breath Denies any nausea, vomiting, dizziness, palpitations, weakness. Denies any abdominal pain.Had one BM which was dark. No active bleeding Denies any dysuria, frequency, urgency Physical Exam Constitutional: + well hydrated and + obese; no acute distress Eyes: PERRL, conjunctivae normal, anicteric sclerae ENMT: external ear and nose normal, oropharynx normal Respiratory: normal respiratory effort, lungs clear to auscultation Cardiovascular: RRR, no murmur, no edema Gastrointestinal (Abdomen): normal bowel sounds, soft, nontender, no hepatosplenomegaly Musculoskeletal: no cyanosis or clubbing, extremities motor strength 5/5 Neurologic: PERRL, EOMI, accommodation nl, no face palsy, no dysarthria Results & Data Results & Data ([facility]) Vital Signs (Past 12 Hours) Vital Signs Temp Pulse Pulse Resp BP Pulse Ox 06/12/21 11:40 36.8 C 74 20 159/69 H 99 06/12/21 08:57 57 L 06/12/21 07:00 36.8 C 74 16 129/64 98 06/12/21 04:41 36.6 C 61 16 132/79 96 06/12/21 01:34 61 Laboratory Results Abnormal lab results 06/09/21 06/11/21 06/12/21 Range/Units 11:56 16:44 06:24 RBC 2.88 L (4.7-6.1) M/uL Hgb 8.6 L 8.7 L (14.0-18.0) g/dL Hct 26.2 L 26.2 L (42-52) % RDW Std Deviation 47.3 H (36.4-46.3) fL RDW Coeff of Jerry 14.7 H (11.5-14.5) % Crossmatch See Detail
[2021-06-12 16:43] LABS: Hematocrit (blood only) 27.3 % (42-52); Hemoglobin 9.1 g/dL (14.0-18.0)
[2021-06-13] MEDS: PANTOprazole 40 MG in DEXTROSE 5% 100 ML IV SCH ×2 (03:58→08:08)
[2021-06-13] MEDS: ACETAMINOPHEN 325 MG TAB PO PRN (04:02)
[2021-06-13 06:48] LABS: Hematocrit (blood only) 28.2 % (42-52); Hemoglobin 9.4 g/dL (14.0-18.0); Mean Corpuscular Hemoglobin 30.1 pg (25-34); Mean Corpuscular Hgb Conc 33.3 g/dL (32-36); Mean Corpuscular Volume 90.4 fL (80-100); Mean Platelet Volume 9.8 fL (7.4-10.4); Platelet Count 307 K/uL (130-400); RDW Coefficient of Variation 15.3 % (11.5-14.5); RDW Standard Deviation 48.5 fL (36.4-46.3); Red Blood Count 3.12 M/uL (4.7-6.1); White Blood Count 7.37 K/uL (4.8-10.8)
[2021-06-13 07:25] LABS: BUN Creatinine Ratio 12.4 (10-20); Calcium 9.1 mg/dl (8.5-10.1); Creatinine Clr Calc Pharmacy 101.9 ml/min; Est GFR (African American) 85.5 ml/min; Est GFR (Non-African American) 73.8 ml/min; Potassium 3.8 mmol/L (3.5-5.1)
[2021-06-13] MEDS: amLODIPine BESYLATE 5 MG TAB PO SCH (08:00)
[2021-06-13] MEDS: allopurinoL 100 MG TAB PO SCH (08:01)
[2021-06-13] MEDS: LIDOCAINE 5% 1 PATCH TD SCH (08:08)
[2021-06-13] MEDS ORDERED: lisinopril 10 MG TAB PO SCH (09:00)
--- NOTE | 2021-06-13 09:48 | Discharge Summary ---
Date of Service June 13, 2021 Admission HPI Per Admitting Provider Patient is 45-year-old male with PMH HTN, chronic back pain and chronic bilateral knee pain, gout presented to ER with complaint of bloody stools. Patient reports 3 days ago had onset of lower abdominal pain with bloody loose stools. Was seen in ER late 06/07/2021 for abdominal pain and bloody BMs. During that visit had hemoglobin of 14, CT abdomen pelvis: Grossly unremarkable and patient was discharged home. Reports continued abdominal discomfort and bloody BMs described as maroon in color. Reports yesterday had approximately 1 BM hourly from 11 AM to 11 PM. Reports vomited and denies any hematemesis or coffee-ground emesis. No further BM since 11 PM. Complains of dizziness and near syncope today, as well as nausea. Did eat a sandwich earlier today. Patient reports has been taking Celebrex daily however past 3 days has been taking 800 mg of ibuprofen 4 times a day. Denies fever/chills, diaphoresis, syncope, vision changes, neck pain, CP, SOB, orthopnea, palpitations, cough, sore throat, choking, otalgia, rhinorrhea, paresthesias, weakness, extremity weakness, extremity edema, rashes, urinary symptoms. Denies ill contacts, recent travel. In ER patient afebrile, P: 114 down to 85, BP 100/57, and percent on room air. WBC: 12, Hgb: 9.4 (was 14 on 06/07/2021), BUN: 43, Cr: 1.2 In ER given 500 mL NSS Admission Exam Per Admitting Provider General: no distress, obese Head: normocephalic, atraumatic Eyes: PERRL, EOM's intact, conjunctiva non-injected, anicteric ENT: normal inspection external ears, nose, mucous membranes mildly dry Neck: supple, trachea midline Lungs: clear, no respiratory distress, no wheezing/rhonchi/rales CV: RRR, no murmur, no pretibial edema Abd: normal BS, soft, + mild tenderness palpation right abdomen without rebound or guarding Ext: no cyanosis, no calf tenderness Neuro: A&O x 3, no focal deficits noted, normal affect Skin: warm, dry Principal Diagnosis Duodenal ulcer Upper Gastrointestinal bleeding Acute blood loss anemia Discharge Exam Constitutional + well hydrated and + obese; no acute distress Eyes PERRL, conjunctivae normal, anicteric sclerae ENMT external ear and nose normal, oropharynx normal Respiratory normal respiratory effort, lungs clear to auscultation Cardiovascular RRR, no murmur, no edema Gastrointestinal (Abdomen) normal bowel sounds, soft, nontender, no hepatosplenomegaly Musculoskeletal no cyanosis or clubbing, extremities motor strength 5/5 Neurologic PERRL, EOMI, accommodation nl, no face palsy, no dysarthria Discharge Data Allergies Allergy/AdvReac Type Severity Reaction Status Date / Time No Known Allergies Allergy Verified 06/09/21 14:05 Consultations 06/09/21 13:43 ED Decision to Admit Stat 06/09/21 14:03 Consult Gastroenterology Routine Procedures Performed Operation Date: 06/10/21 05:25 Actual Procedures p Esophagogastroduodenoscopy(Not Applicable) - Jd Wray Case, DO Findings: The esophagus was normal. The stomach was normal. One spurting cratered duodenal ulcer with a visible vessel was found in the duodenal bulb. The lesion was 10 mm in largest dimension. Area was unsuccessfully injected with 6 mL of a 1:10,000 solution of epinephrine for hemostasis. Fulguration to stop the bleeding by bipolar probe was unsuccessful. For hemostasis, two hemostatic clips were successfully placed (MR conditional). The bleeding did continue, though it was significantly slowed. To stop active bleeding, hemostatic spray was deployed. Four sprays were applied. There was no bleeding at the end of the procedure. Impression: - Normal esophagus. - Normal stomach. - Spurting duodenal ulcer with a visible vessel. Treatment not successful. Treatment not successful. Treated with bipolar cautery. Clips (MR conditional) were placed. hemostatic spray applied. - No specimens collected. Recommendation: - [facility] care. - NPO. - Continue present medications including Protonix gtt at 8 mg/hour for 72 hours total. Hospital Course (1) Duodenal ulcer: (2) Anemia: 45-year-old male with PMH HTN, chronic bilateral knee pain, gout presented to ER with complaint of maroon bloody stools, lower abdominal pain x 3 days. Takes Celebrex daily however past 3 days has been taking 800 mg of ibuprofen 4 times a day Upper GI bleeding from a duodenal ulcer. Acute blood loss anemia. EGD report noted above Hb was 9.4 on admission, was 14 on 06/07/2021. Hemoglobin dropped to 7.4 during hospital stay. Required 1 packed red blood cell during EGD. Patient received IV PPI drip for 72 hours post EGD. Hemoglobin remained stable. Hemoglobin today is 9.4. Patient discharged on pantoprazole 40 mg twice daily. Will need repeat EGD in 8 weeks to assess healing. (3) Hypertension: Continue amlodipine and lisinopril (4) Radicular low back pain: Chronic Back pain and bilateral leg pain Advised to avoid NSAIDs going forward. Ibuprofen and Celebrex stopped PO tylenol prn Lidocaine patch May need follow up with Pain management if pain persists outpatient on current regimen Total Time Total Time Spent Total Time Spent (In Minutes): 45 Total Time Includes: Examination of the Patient, Discharge Planning and Medication Reconciliation Discharge Plan Discharge Items Patient Disposition: Home - Self-Care Reason For Visit: GI BLEED Discharge Diagnosis: Duodenal ulcer Upper Gastrointestinal bleeding Acute blood loss anemia Activity: Resume your previous activity Non-emergency contact: Primary Care Provider and Applications Packager Call non-emergency contact if: you have any medication questions and your symptoms worsen Follow-up/Referrals: Lui Benavides DO [Primary Care Provider] - (Date & Time 06/19/2021 11:00 AM Provider Lui Benavides DO Department [facility] ) Diet: Heart Healthy Addtl Attending Provider Instructions: Mr Rene. You came into the hospital due to bloody stools. You were evaluated and noted to have low blood level. You had endoscopy which showed a duodenal ulcer with bleeding which required clips to stop bleeding. You also needed a unit of blood during your hospital stay. You are being discharged home on pantoprazole. AVOID ANY NSAIDS (NonSteroidal Anti inflammatory Drugs like ibuprofen/Advil/Naproxen/cerebrex etc) going forward. You can use tylenol as needed and lidocaine patch as needed for your chronic back and knee pains. You will need to follow up with Applications Packager for repeat endoscopy in 8 weeks to ensure healing. It was a pleasure taking care of you. Pending Studies at Discharge: No Stand-Alone Forms: My [employer], Work/School Release, Smoking Cessation Medications and DC Order Prescriptions: New lidocaine 5 % Adhesive Patch,Medicated 1 patch transdermal QAM Qty: 15 RF: 0 pantoprazole 40 mg tablet,delayed release (DR/EC) 40 mg PO BID Qty: 60 RF: 1 Continued sildenafil (pulm.hypertension) [Revatio] 20 mg Tablet 40 mg PO UD PRN (Reason: Sexual Activity) RF: 0 allopurinol 100 mg Tablet 150 mg PO QAM RF: 0 acetaminophen [Tylenol Extra Strength] 500 mg Tablet 1,000 mg PO Q6H PRN (Reason: Pain) RF: 0 amlodipine 5 mg tablet 5 mg PO QAM RF: 0 lisinopril 30 mg tablet 30 mg PO QAM RF: 0 Discontinued ibuprofen 200 mg Tablet 800 mg PO Q6H PRN (Reason: Pain) RF: 0 celecoxib 100 mg capsule 100 mg PO QAM RF: 0 Discharge Orders: Discharge Order (Routine); Ordered 06/13/21 Ordered By: Alva Harrington/Other Patient Handouts: Bleeding Gastrointestinal Admission Data Admit Date/Time: 06/09/21 14:02 Attending Provider: Alva Reyes I. Admit Provider: Randall Sifuentes Primary Care Provider: Lui Benavides Other Providers: Randall Sifuentes ; Yared Pruitt Other Interventions: Discharge Summary Assessment (RN) Last Done: 06/13/21 09:54
== END 2021-06-13 11:17 | disposition home or self-care (01) | DRG 378 ==
LOC: ED 11:43 → EDINP 14:02 → SUATTDRO 14:02 → 2S 20:59

== ENCOUNTER 2021-10-13 11:30 | Observation (INO) ==
[2021-10-13] MEDS ORDERED: KETOROLAC TROMETHAMINE 15 MG/ML VIAL IV STA (11:49)
[2021-10-13] MEDS ORDERED: ACETAMINOPHEN 1,000 MG/100 ML VIAL IV STA (11:49)
[2021-10-13] MEDS ORDERED: SODIUM CHLORIDE 0.9% 1000ML 2,000 ML IV ONE (11:49)
[2021-10-13] MEDS ORDERED: FAMOTIDINE 20MG IV PUSH 20 MG/5 ML SYR IV STA (11:50)
--- NOTE | 2021-10-13 12:05 | XRay Report ---
XR chest 1V portable HISTORY: 45 years-old Male Chest Pain . Acute atypical chest pain COMPARISON: Chest radiograph 06/09/2021 TECHNIQUE: Portable AP view of the chest FINDINGS: The cardiac silhouette is enlarged. No pneumothorax, large pleural effusion, airspace consolidation o r overt pulmonary edema. Degenerative changes of the shoulders and spine. IMPRESSION: No acute process. ACT 112: Negative or not required by law. The above report was generated using voice recognition software. It may contain grammatical, syntax o r spelling errors. Electronically signed by: Darío Valencia M.D. 10/13/2021 12:04 PM
[2021-10-13 12:15] LABS: Basophils # (auto) 0.03 K/uL (0-0.2); Basophils % (auto) 0.2 %; Eosinophils # (auto) 0.07 K/uL (0-0.5); Eosinophils % (auto) 0.4 %; Hematocrit (blood only) 48.5 % (42-52); Hemoglobin 16.8 g/dL (14.0-18.0); Immature Granulocytes # (auto) 0.03 K/uL (0.00-0.02); Immature Granulocytes % (auto) 0.2 %; Lymphocytes # (auto) 2.13 K/uL (1.2-3.4); Lymphocytes % (auto) 12.8 %; Mean Corpuscular Hemoglobin 30.2 pg (25-34); Mean Corpuscular Hgb Conc 34.6 g/dL (32-36); Mean Corpuscular Volume 87.2 fL (80-100); Mean Platelet Volume 11.1 fL (7.4-10.4); Monocytes # (auto) 0.83 K/uL (0.11-0.59); Neutrophils # (auto) 13.53 K/uL (1.4-6.5); Neutrophils % (auto) 81.4 %; Platelet Count 432 K/uL (130-400); RDW Coefficient of Variation 15.9 % (11.5-14.5); RDW Standard Deviation 50.5 fL (36.4-46.3); Red Blood Count 5.56 M/uL (4.7-6.1); White Blood Count 16.62 K/uL (4.8-10.8)
[2021-10-13 12:38] LABS: Troponin I 0.04 ng/ml (0-0.04)
[2021-10-13 12:39] LABS: Albumin Globulin Ratio 1.6 (0.9-2); Albumin Level 5.4 gm/dl (3.4-5.0); BUN Creatinine Ratio 17.5 (10-20); Bilirubin,Total 0.9 mg/dl (0.2-1.0); Calcium 10.7 mg/dl (8.5-10.1); Creatinine Clr Calc Pharmacy 42.9 ml/min; Est GFR (African American) 28.4 ml/min; Est GFR (Non-African American) 24.5 ml/min; Globulin 3.3 gm/dl (2.5-4.0); Magnesium 2.3 mg/dl (1.7-2.4); Phosphorus 5.1 mg/dl (2.5-4.9); Potassium 5.5 mmol/L (3.5-5.1); Total Protein 8.7 gm/dl (6.0-8.3)
--- NOTE | 2021-10-13 13:49 | CT Scan Report ---
CT OF THE ABDOMEN AND PELVIS WITHOUT CONTRAST CLINICAL HISTORY: Renal failure. COMPARISON STUDY: CT of the abdomen and pelvis June 08, 2021. TECHNIQUE: Axial images of the abdomen and pelvis were obtained without IV contrast. Images were revi ewed in the axial, sagittal, and coronal planes. Automated exposure control was utilized for the kirit dy. A dose lowering technique was utilized adhering to the principles of ALARA. FINDINGS: There are a few punctate bilateral renal calculi. No ureteral calculi or hydronephrosis is present. There is no perinephric infiltration. The kidneys are unremarkable on this unenhanced CT Evaluation of the remainder of the abdomen and pelvis is suboptimal on this unenhanced study. Hepatic steatosis is present. No hepatic lesions are identified on this unenhanced exam. Borderline splenome william is unchanged. Unenhanced images of the adrenal glands and pancreas are unremarkable. No evidence for a bowel obstruction. The appendix is not visualized and likely surgically absent. No lymphadenop athy or ascites is present. Postoperative findings within the far spine are noted. These are suboptim ally assessed by CT. No acute fracture within visualized skeletal structures. IMPRESSION: 1. Punctate bilateral renal calculi. No ureteral calculi or hydronephrosis. 2. No acute process within the abdomen or pelvis on unenhanced exam. 3. Hepatic steatosis. ACT 112: Negative or not required by law. Electronically signed by: Darian Conde M.D. 10/13/2021 1:47 PM
--- NOTE | 2021-10-13 13:54 | History & Physical Report ---
Date of Service October 13, 2021 Assessment & Plan (1) Rhabdomyolysis: (2) Muscle cramps: Plan: Patient is 45-year-old male with PMH HTN, chronic back pain and chronic bilateral knee pain, gout presented to ER with c/o muscle cramps, increased diaphoresis x 2 days. Denies known fever. Has increased exercise the past week with lifting weights and using elliptical Today in ER patient afebrile, P: 98, BP 105/55, 97% on room air. WBC: 16, K: 5.5, BUN: 51, Cr: 2.9, CK: 2354, Troponin: 0.04, phosphorus: 5.1, Ca: 10.7 In ER given 2 L NSS, 15 mg Toradol IV, 1 g IV Tylenol, Pepcid 20 mg IV Continue IVF Repeat CK, bmp in am Urine myoglobin pending YUDITH plan as below (3) YUDITH (acute kidney injury): Plan: BUN: 51, Cr: 2.9. Baseline Cr: ~1.0. Reports no urination today CT ABD/PELVIS: No hydronephrosis or ureteral calculi noted Likely secondary to rhabdomyolysis In ER given 2L NSS UA pending IVF Avoid nephrotoxic agents when possible. Currently holding lisinopril Monitor renal functions If no improvement consider nephrology consult (4) Hyperkalemia: Plan: K: 5.5 in setting of YUDITH, rhabdomyolysis In ER given 2L NSS Repeat K: 4.6 Monitor BMP (5) Elevated LFTs: Plan: T bili: 0.9, AST: 82 (prior 23), ALT: 84 (prior35), alk phos: 111 (prior 77), lipase 108 CT ABD/PELVIS: No acute process within the abdomen or pelvis on unenhanced exam. Hepatic steatosis. Has been taking 4500-6000mg Tylenol daily for >1 year Acetaminophen level pending Hold on further Tylenol at this time Repeat liver functions in am Discussed appropriate acetaminophen dosing and max doses with pt Urine drug screen pending If no improvement consider GI consult (6) Elevated WBC count: Plan: WBC: 16. In ER pt afebrile. Negative COVID 19 PCR, Negative Influenza PCR and RSV PCR. Lactate WNL He reports chronic diaphoresis, however increased past 2 days with muscle cramps, nausea. No known fevers at home. Denies cough, SOB Pt had taken 3 days prednisone, last dose 09/29/21. CT ABD/Pelvis: no acute findings. CXR: no acute infiltrate. UA pending Blood cultures pending No other signs acute infection (7) Duodenal ulcer: Plan: History of GI bleed and duodenal ulcer in 05/2021. Repeat EGD 10/02/2021 showed reflux esophagitis, gastritis, duodenitis No recent GI bleeding reported. Hgb WNL Continue PPI Reinforced to patient to avoid use of NSAIDs, as he has been using 400 mg ibuprofen twice daily for the past month (8) Hypertension: Plan: Continue amlodipine Hold lisinopril secondary to YUDITH (9) Radicular low back pain: Plan: Chronic low back pain right radiculopathy Will reduce gabapentin dosing from TID to BID secondary to YUDITH Continue lidocaine patch prn Discussed with patient the appropriate Tylenol dose and max limit Pt may need outpatient pain management referral (10) Gout: Plan: Continue allopurinol DVT Prophylaxis SCDs Full Code as per discussion with pt Follows with Dr Lui Benavides for routine care Pt was seen and care coordinated with Dr Anders. See addendum. History of Present Illness Chief Complaint: Muscle cramps Primary Care Provider: Lui Benavides DO Patient is 45-year-old male with PMH HTN, chronic back pain and chronic bilateral knee pain, gout presented to ER with c/o muscle cramps x2 days. Patient reports the past 2 days he has been having muscle cramping to bilateral arms and legs, bilateral shoulders, chest, neck. 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 He states today he had to "take down an inmate" and after he was very diaphoretic and felt like he had elevated heart rate without sensation of skipped beats and also reports increased muscle cramping. This prompted him to come to ER. He denies any known fever and reports has temperature checked at work and did not report fever. Patient reports yesterday noticed urine was very dark yellow. Reports has not urinated today. Prior to ER arrival reports a little abdominal discomfort just distal to his umbilicus. He states this lasted approximately an hour and has since resolved. Denies any other abdominal pain or flank pain. He reports ch ronic low back pain and radiculopathy and feels this is unchanged. He states the past week he has changed his diet and attempts to lose weight. He reports that he has been eating lean meats and veggies and eating 6 small meals a day and has lost 13 pounds in the past week. He also has increased his exercise routine and has been lifting weights and using elliptical three times a week. Also reports frontal headache for the past 2 days. Denies any current headache. Has been having nausea past 2 days, worse this morning. Denies vomiting. Reports 2 episodes of loose stool this morning. Patient reports often has loose stool depending on what he eats. Patient reports takes extra strength Tylenol 3 to 4 tablet 2-3 times a day for over 1 year. Patient also admits to using 2 tabs ibuprofen twice daily for the past month. Prior inpatient and outpatient records reviewed. Patient was hospitalized 06/09/2021-06/13/2021 for GI bleed secondary to duodenal ulcer. Had repeat EGD by Dr. Minaya on 10/02/2021 with Findings of reflux esophagitis, gastritis, duodenitis. Patient on prednisone taper 09/26/2021 for cervical neck pain and radiculopathy. Patient reports took 3 days of prednisone and then stopped because he reports it made him feel bloated and jittery. States saw a chiropractor and has been completing neck exercises with resolution of neck pain and left arm radiculopathy. Denies dizziness, syncope, vision changes, CP, SOB, orthopnea, cough, sore throat, choking, otalgia, rhinorrhea, extremity weakness, extremity edema, rashes, dysuria, hematuria, hematochezia, melena. Allergies Allergy/AdvReac Type Severity Reaction Status Date / Time No Known Allergies Allergy Verified 10/13/21 14:29 Home Medications Medication Instructions Recorded Confirmed Type amlodipine 5 mg tablet 5 mg PO QAM 06/07/21 10/13/21 History lisinopril 30 mg tablet 30 mg PO QAM 06/07/21 10/13/21 History acetaminophen 500 mg tablet 100 mg PO TID PRN 06/09/21 10/13/21 History (Tylenol Extra Strength) lidocaine 5 % topical patch 1 patch TRANSDERMAL QAM PRN 07/19/21 10/13/21 History allopurinol 300 mg tablet 450 mg PO DAILY 10/13/21 10/13/21 History cyclobenzaprine 5 mg tablet 5 mg PO TID PRN 10/13/21 10/13/21 History diclofenac sodium 1 % topical gel 1 ea TOPICAL TID PRN 10/13/21 10/13/21 History gabapentin 300 mg capsule 300 mg PO TID 10/13/21 10/13/21 History pantoprazole 40 mg tablet,delayed 40 mg PO DAILY 10/13/21 10/13/21 History release trazodone 50 mg tablet 50 mg PO HS PRN 10/13/21 10/13/21 History Past Med/Surg History Medical History Anemia Bronchitis hx of---reason for inhaler Chronic back pain Depression Gout Hearing deficit History of anesthesia reaction difficulty waking with last back surgery History of COVID-19 diagnosed x2--09/04/21 (asymtomatic, found prior to procedure) and 06/2020--no issues now Hyperlipidemia Hypertension Hypothyroidism no med Morbid obesity with BMI of 40.0-44.9, adult Sleep apnea bipap Surgical History History of appendectomy History of colonoscopy History of endoscopic sinus surgery History of esophagogastroduodenoscopy (EGD) History of lumbar discectomy History of lumbar spinal fusion x2 History of repair of left rotator cuff History of tonsillectomy and adenoidectomy History of wisdom tooth extraction Status post tendon repair x2--left pectoral and right pectoral Family History Mother Family history of diabetes mellitus Grandfather (Maternal) Family history of esophageal cancer Grandfather (Paternal) Family hx of colon cancer Father Family hx colonic polyps Other No family history of adverse response to anesthesia Social History Smoking Status: Never smoker Second Hand Exposure: No; Hx Alcohol Use: No Hx Substance Use: No Preferred Language: Kinyarwanda Communication Ability: Effective Web Press Jogger Required: No Beliefs That Will Affect Care: None marital status: Current Living Situation: Family Current Living Situation Comment: Lives with /daughter/son How many Children do You have: 2 Other Information That Helps Us Care for You: No Feels Safe at Home: Yes Safety Concerns: Feels Safe At This Time Assistive Devices: BiPap Review of Systems Review of Systems: All systems reviewed & are unremarkable except as noted in HPI & below Physical Exam Physical Exam: General: no distress, obese Head: normocephalic, atraumatic Eyes: PERRL, EOM's intact, conjunctiva non-injected, anicteric ENT: normal inspection external ears, nose, mucous membranes dry Neck: supple, trachea midline Lungs: clear, no respiratory distress, no wheezing/rhonchi/rales CV: RRR, no murmur, no pretibial edema Abd: protuberant, normal BS, soft, non-tender Ext: no cyanosis, no calf tenderness, ROM intact Neuro: A&O x 3, no focal deficits noted, normal affect Skin: warm, dry Results & Data Results & Data ([facility]) Vital Signs (Past 12 Hours) Vital Signs Temp Pulse Pulse Resp BP BP Pulse Ox 10/13/21 13:07 83 20 117/78 97 10/13/21 12:54 83 16 104/67 96 10/13/21 11:38 36.8 C 98 H 20 105/55 L 97 Laboratory Results Short CBC 10/13/21 Range/Units 11:45 WBC 16.62 H (4.8-10.8) K/uL Hgb 16.8 (14.0-18.0) g/dL Hct 48.5 (42-52) % Plt Count 432 H (130-400) K/uL BMP 10/13/21 11:45 Sodium 132 L Potassium 5.5 H Chloride 98 Carbon Dioxide 20 L BUN 51 H Creatinine 2.91 H Glucose 72 Calcium 10.7 H Cardiac Enzymes 10/13/21 10/13/21 Range/Units 11:45 11:45 Total Creatine Kinase 2354 H (30-223) U/L Troponin I 0.04 (0-0.04) ng/ml Liver Function 10/13/21 Range/Units 11:45 Total Bilirubin 0.9 (0.2-1.0) mg/dl AST 82 H (13-39) U/L ALT 84 H (7-52) U/L Alkaline Phosphatase 111 H (34-104) U/L Albumin 5.4 H (3.4-5.0) gm/dl Diagnostic Findings Chest X-Ray 10/13/21 11:49 XR chest 1V portable HISTORY: 45 years-old Male Chest Pain . Acute atypical chest pain COMPARISON: Chest radiograph 06/09/2021 TECHNIQUE: Portable AP view of the chest FINDINGS: The cardiac silhouette is enlarged. No pneumothorax, large pleural effusion, airspace consolidation or overt pulmonary edema. Degenerative changes of the shoulders and spine. IMPRESSION: No acute process. ACT 112: Negative or not required by law. The above report was generated using voice recognition software. It may contain grammatical, syntax or spelling errors. Electronically signed by: Darío Valencia M.D. 10/13/2021 12:04 PM Abdomen/Pelvis CT 10/13/21 12:52 CT OF THE ABDOMEN AND PELVIS WITHOUT CONTRAST CLINICAL HISTORY: Renal failure. COMPARISON STUDY: CT of the abdomen and pelvis June 08, 2021. TECHNIQUE: Axial images of the abdomen and pelvis were obtained without IV contrast. Images were reviewed in the axial, sagittal, and coronal planes. Automated exposure control was utilized for the study. A dose lowering technique was utilized adhering to the principles of ALARA. FINDINGS: There are a few punctate bilateral renal calculi. No ureteral calculi or hydronephrosis is present. There is no perinephric infiltration. The kidneys are unremarkable on this unenhanced CT Evaluation of the remainder of the abdomen and pelvis is suboptimal on this unenhanced study. Hepatic steatosis is present. No hepatic lesions are identified on this unenhanced exam. Borderline splenomegaly is unchanged. Unenhanced images of the adrenal glands and pancreas are unremarkable. No evidence for a bowel obstruction. The appendix is not visualized and likely surgically absent. No lymphadenopathy or ascites is present. Postoperative findings within the far spine are noted. These are suboptimally assessed by CT. No acute fracture within visualized skeletal structures. IMPRESSION: 1. Punctate bilateral renal calculi. No ureteral calculi or hydronephrosis. 2. No acute process within the abdomen or pelvis on unenhanced exam. 3. Hepatic steatosis. ACT 112: Negative or not required by law. Electronically signed by: Darian Conde M.D. 10/13/2021 1:47 PM Supervising Physician Co-Signing Physician Notes I have seen and examined the patient and have discussed the case with the pro vider above. I agree with the assessment and plan as stated. 45 yoM who is well built with a high percentage of muscle mass presents in acute rhabdomyolysis. He has just shifted energy sources from high fat, sugar foods to now eating lean meats and vegetables in the last week. Simultaneously, he has started heavier weight lifting and has a physically demanding job. He denies hematuria, fevers, recent illnesses. Denies pain or other issues at this time. Mild tachycardia consistently with dehydration. Physical reveals muscular young man in NAD. Cardiac auscultation without murmurs, gallops or rubs. S1/2 heard, regular rate and rhythm. Lungs are CTA. No CVA TTP or abdominal tenderness. Agree with plan outlined above. Trend CMP in am to monitor creatinine and LFTs. Trend CK. I discussed the plan with nd mother who were at the bedside. DO Chago
--- NOTE | 2021-10-13 14:41 | Emergency Department Note ---
Impression & Plan Acute renal failure, Serum potassium elevated, Rhabdomyolysis, Transaminitis, Serum calcium elevated, Leukocytosis ED Provider Note NAME: RAJ GRAY JR AGE: 45 SEX: M ARRIVES VIA: Ambulance INFORMANT: Patient ED PROVIDER(S): Waqar Thompson MD CHIEF COMPLAINT: Body aches, nausea, diarrhea, lightheadedness. PLAN: Disposition: Admit MEDICAL DECISION MAKING: The patient is a pleasant 45-year-old gentleman who presents to the emergency department for evaluation of malaise, generalized body aches, feverishness and lightheadedness with nausea and loose stool which is worsened into today and so presents for evaluation. Patient reports he is vaccinated for COVID-19 but has not received a booster. He denies any known COVID-19 exposures. He denies any known tick exposures. He denies cough or congestion. Patient was covid-19 positive 09/05/21 and was asymptomatic per records. On arrival the patient is fatigued appearing but no acute distress, afebrile stable vital signs. He appears clinically dry. His abdomen is benign. He has no focal neurologic deficits. EKG without overt acute ischemia. Chest x-ray negative for acute cardiopulmonary process. WBC demonstrates leukocytosis of 16, nonspecific. Platelets 400 K, nonspecific. H/H improved from prior with H/H 16.8/48.5. Chemistry without metabolic acidosis. He does however have acute renal failure with creatinine of 2.9 which is new compared to values in May when he had normal renal function. LFTs with mild elevations with AST and ALT in the 80s. Otherwise LFTs without significant abnormality. Lipase is not significantly elevated. A CT of the abdomen pelvis was performed and was negative for acute process. Hepatosteatosis noted. Given the patient's acute renal failure the patient was in agreement for admission for further management. Blood cultures, lactic acid and procalcitonin were ordered. Covid-19 PCR negative. Influenza and RSV PCR negative. Of note, the patient reports having chronic back pain for which she takes Tylenol daily. He reports that he will take at x3 extra strength tablets at a time and usually only twice a day but will times take this 3 times a day. While patient does seem to periodically surpass the daily recommended limit at times chronic Tylenol toxicity is considered less likely at this time. Case was discussed with Claudia Peguero, [facility], with [facility] who will evaluate the patient for admission. CPk resulted and was 2300. Procalcitonin is not significantly elevated. Triage Nursing notes reviewed and agree them. Prior medical records reviewed Vital Signs: reviewed and remarkable for no significant abnormalities Differential diagnosis: Infection, dehydration, metabolic abnormality, hypo/hyperglycemia, electrolyte disturbance, anemia, hypoxia, cardiac sources, intracerebral event, toxicologic, neurologic, as well as other pathologies. ER treatment provided: See below. Diagnostics interpreted by me: ECG: Normal sinus rhythm, 94 bpm, no ectopy, no overt ST elevation or depression, QTC 430, QRS 104. Cardiac Monitoring: An order for continuous cardiac monitoring was placed and demonstrated normal sinus rhythm, 94 bpm, no ectopy. Laboratory studies: See below Imaging studies: See below Consultation(s): Claudia Peguero [facility], with [facility] HPI: The patient is a pleasant 45-year-old gentleman who presents to the emergency department for evaluation of malaise, generalized body aches, feverishness and lightheadedness with nausea and loose stool which is worsened into today and so presents for evaluation. Patient reports he is vaccinated for COVID-19 but has not received a booster. He denies any known COVID-19 exposures. He denies any known tick exposures. He denies cough or congestion. Patient was covid-19 positive 09/05/21 and was asymptomatic per records. ROS: See above HPI for pertinent positives & negatives. A total of 10 systems reviewed and were otherwise negative. VITALS:See Below PHYSICAL EXAMINATION: GENERAL: Awake, alert, fatigued-appearing, in no distress HENT: Normocephalic, atraumatic. Oropharynx with dry mucous membranes and otherwise unremarkable. EYES: Normal conjunctiva. Sclera non-icteric. NECK: Supple. No nuchal rigidity. FROM. No JVD. RESPIRATORY: Clear to auscultation. CARDIAC: Regular rate, normal rhythm. Extremities warm and well perfused. Pulses equal. ABDOMEN: Soft, non-distended. No tenderness to palpation. No rebound or guarding. No masses. RECTAL: Deferred. MUSCULOSKELETAL: Chest examination reveals no tenderness. The back is symmetrical on inspection without obvious abnormality. There is no CVA tenderness to palpation. No joint edema. LOWER EXTREMITIES: Calves are equal size bilaterally and non-tender. No edema. No discoloration. NEURO: Normal sensorium. No sensory or motor deficits noted. SKIN: No rash or jaundice noted. Waqar Thompson MD Past Med/Surg History Medical History Anemia Bronchitis hx of---reason for inhaler Chronic back pain Depression Gout Hearing deficit History of anesthesia reaction difficulty waking with last back surgery History of COVID-19 diagnosed x2--09/04/21 (asymtomatic, found prior to procedure) and 06/2020--no issues now Hyperlipidemia Hypertension Hypothyroidism no med Morbid obesity with BMI of 40.0-44.9, adult Sleep apnea bipap Surgical History History of appendectomy History of colonoscopy History of endoscopic sinus surgery History of esophagogastroduodenoscopy (EGD) History of lumbar discectomy History of lumbar spinal fusion x2 History of repair of left rotator cuff History of tonsillectomy and adenoidectomy History of wisdom tooth extraction Status post tendon repair x2--left pectoral and right pectoral Family History Mother Family history of diabetes mellitus Grandfather (Maternal) Family history of esophageal cancer Grandfather (Paternal) Family hx of colon cancer Father Family hx colonic polyps Other No family history of adverse response to anesthesia Social History Smoking Status: Never smoker Second Hand Exposure: No; Hx Alcohol Use: No Hx Substance Use: No Preferred Language: Georgian Communication Ability: Effective 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 Beliefs That Will Affect Care: None marital status: Current Living Situation: Family Current Living Situation Comment: Lives with /daughter/son How many Children do You have: 2 Other Information That Helps Us Care for You: No Feels Safe at Home: Yes Safety Concerns: Feels Safe At This Time Assistive Devices: None Allergies Allergies Allergy/AdvReac Type Severity Reaction Status Date / Time No Known Allergies Allergy Verified 10/13/21 14:29 Home Meds Home Medications Medication Instructions Recorded Confirmed amlodipine 5 mg tablet 5 mg PO QAM 06/07/21 10/13/21 lisinopril 30 mg tablet 30 mg PO QAM 06/07/21 10/13/21 acetaminophen 500 mg tablet 100 mg PO TID PRN 06/09/21 10/13/21 (Tylenol Extra Strength) lidocaine 5 % topical patch 1 patch TRANSDERMAL QAM PRN 07/19/21 10/13/21 allopurinol 300 mg tablet 450 mg PO DAILY 10/13/21 10/13/21 cyclobenzaprine 5 mg tablet 5 mg PO TID PRN 10/13/21 10/13/21 diclofenac sodium 1 % topical gel 1 ea TOPICAL TID PRN 10/13/21 10/13/21 gabapentin 300 mg capsule 300 mg PO TID 10/13/21 10/13/21 pantoprazole 40 mg tablet,delayed 40 mg PO DAILY 10/13/21 10/13/21 release trazodone 50 mg tablet 50 mg PO HS PRN 10/13/21 10/13/21 Results & Data (ED) Vital Signs Vital Signs - 24 hr 10/13/21 11:34 10/13/21 11:38 10/13/21 11:40 Temperature 36.8 C Temperature Source Oral Pulse Rate 94 H 98 H 98 H Pulse Rate [Apical] Pulse Rate from SpO2 Sensor 94 H 98 H Respiratory Rate 12 20 18 Blood Pressure 105/55 L Blood Pressure [Right Arm] Blood Pressure Mean 71 Blood Pressure Mean [Right Arm] Pulse Oximetry 98 97 97 Oxygen Delivery Method Room Air Sepsis Recent Fever Within 48 Hours No Sepsis New/Unexplained Change in Mental Status No Sepsis Action Taken by Nursing No Action Required 10/13/21 11:50 10/13/21 12:00 10/13/21 12:10 Temperature Temperature Source Pulse Rate 93 H 96 H 92 H Pulse Rate [Apical] Pulse Rate from SpO2 Sensor 95 H 96 H 92 H Respiratory Rate 16 15 22 Blood Pressure 94/78 L Blood Pressure [Right Arm] Blood Pressure Mean 83 Blood Pressure Mean [Right Arm] Pulse Oximetry 98 95 96 Oxygen Delivery Method Sepsis Recent Fever Within 48 Hours Sepsis New/Unexplained Change in Mental Status Sepsis Action Taken by Nursing 10/13/21 12:20 10/13/21 12:21 10/13/21 12:30 Temperature Temperature Source Pulse Rate 89 85 Pulse Rate [Apical] Pulse Rate from SpO2 Sensor 88 85 Respiratory Rate 22 18 Blood Pressure 104/67 Blood Pressure [Right Arm] Blood Pressure Mean 79 Blood Pressure Mean [Right Arm] Pulse Oximetry 95 96 Oxygen Delivery Method Room Air Sepsis Recent Fever Within 48 Hours Sepsis New/Unexplained Change in Mental Status Sepsis Action Taken by Nursing 10/13/21 12:40 10/13/21 12:50 10/13/21 12:54 Temperature Temperature Source Pulse Rate 87 85 Pulse Rate [Apical] 83 Pulse Rate from SpO2 Sensor 87 85 Respiratory Rate 20 12 16 Blood Pressure Blood Pressure [Right Arm] 104/67 Blood Pressure Mean Blood Pressure Mean [Right Arm] 79 Pulse Oximetry 96 95 96 Oxygen Delivery Method Room Air Sepsis Recent Fever Within 48 Hours Sepsis New/Unexplained Change in Mental Status Sepsis Action Taken by Nursing 10/13/21 13:00 10/13/21 13:01 10/13/21 13:07 Temperature Temperature Source Pulse Rate 85 84 Pulse Rate [Apical] 83 Pulse Rate from SpO2 Sensor 84 84 Respiratory Rate 16 18 20 Blood Pressure 117/78 Blood Pressure [Right Arm] 117/78 Blood Pressure Mean 91 Blood Pressure Mean [Right Arm] 91 Pulse Oximetry 98 98 97 Oxygen Delivery Method Room Air Sepsis Recent Fever Within 48 Hours Sepsis New/Unexplained Change in Mental Status Sepsis Action Taken by Nursing 10/13/21 13:20 10/13/21 13:30 10/13/21 13:40 Temperature Temperature Source Pulse Rate 88 88 83 Pulse Rate [Apical] Pulse Rate from SpO2 Sensor 89 88 83 Respiratory Rate 19 17 15 Blood Pressure 122/73 Blood Pressure [Right Arm] Blood Pressure Mean 89 Blood Pressure Mean [Right Arm] Pulse Oximetry 100 99 97 Oxygen Delivery Method Sepsis Recent Fever Within 48 Hours Sepsis New/Unexplained Change in Mental Status Sepsis Action Taken by Nursing 10/13/21 13:50 10/13/21 14:00 10/13/21 14:01 Temperature Temperature Source Pulse Rate 85 88 88 Pulse Rate [Apical] Pulse Rate from SpO2 Sensor 83 91 H 88 Respiratory Rate 20 13 14 Blood Pressure 124/65 Blood Pressure [Right Arm] Blood Pressure Mean 84 Blood Pressure Mean [Right Arm] Pulse Oximetry 98 98 100 Oxygen Delivery Method Sepsis Recent Fever Within 48 Hours Sepsis New/Unexplained Change in Mental Status Sepsis Action Taken by Nursing 10/13/21 14:20 10/13/21 14:30 10/13/21 14:40 Temperature Temperature Source Pulse Rate 81 83 80 Pulse Rate [Apical] Pulse Rate from SpO2 Sensor 81 83 80 Respiratory Rate 19 23 17 Blood Pressure 120/89 Blood Pressure [Right Arm] Blood Pressure Mean 99 Blood Pressure Mean [Right Arm] Pulse Oximetry 98 100 98 Oxygen Delivery Method Sepsis Recent Fever Within 48 Hours Sepsis New/Unexplained Change in Mental Status Sepsis Action Taken by Nursing 10/13/21 14:50 10/13/21 15:00 Temperature Temperature Source Pulse Rate 82 81 Pulse Rate [Apical] Pulse Rate from SpO2 Sensor 82 Respiratory Rate 19 18 Blood Pressure 107/66 Blood Pressure [Right Arm] Blood Pressure Mean 79 Blood Pressure Mean [Right Arm] Pulse Oximetry 100 Oxygen Delivery Method Sepsis Recent Fever Within 48 Hours Sepsis New/Unexplained Change in Mental Status Sepsis Action Taken by Nursing Laboratory Data Attestation: I reviewed the patient's lab results. Result diagrams: 10/14/21 06:28 10/14/21 06:28 Lab Results 10/13/21 10/13/21 10/13/21 Range/Units 11:45 11:45 11:45 WBC 16.62 H (4.8-10.8) K/uL RBC 5.56 (4.7-6.1) M/uL Hgb 16.8 (14.0-18.0) g/dL Hct 48.5 (42-52) % MCV 87.2 (80-100) fL MCH 30.2 (25-34) pg MCHC 34.6 (32-36) g/dL RDW Std Deviation 50.5 H (36.4-46.3) fL RDW Coeff of Jerry 15.9 H (11.5-14.5) % Plt Count 432 H (130-400) K/uL MPV 11.1 H (7.4-10.4) fL Immature Gran % (Auto) 0.2 % Neut % (Auto) 81.4 % Lymph % (Auto) 12.8 % Monroe % (Auto) 5.0 % Eos % (Auto) 0.4 % Baso % (Auto) 0.2 % Neut # (Auto) 13.53 H (1.4-6.5) K/uL Lymph # (Auto) 2.13 (1.2-3.4) K/uL Monroe # (Auto) 0.83 H (0.11-0.59) K/uL Eos # (Auto) 0.07 (0-0.5) K/uL Baso # (Auto) 0.03 (0-0.2) K/uL Immature Gran # (Auto) 0.03 H (0.00-0.02) K/uL PT (9.0-12.0) Seconds INR (0.9-1.1) Sodium 132 L (136-145) mmol/L Potassium 5.5 H (3.5-5.1) mmol/L Chloride 98 (98-107) mmol/L Carbon Dioxide 20 L (21-32) mmol/L Anion Gap 14 H (3-11) BUN 51 H (6-23) mg/dl Creatinine 2.91 H (0.6-1.4) mg/dl Est Cr Clr Drug Dosing 42.9 ml/min Est GFR ( Amer) 28.4 ml/min Est GFR (Non-Af Amer) 24.5 ml/min BUN/Creatinine Ratio 17.5 (10-20) Glucose 72 (70-99(Fasting)) mg/dl Lactate (0.4-2.0) mmol/L Calcium 10.7 H (8.5-10.1) mg/dl Phosphorus 5.1 H (2.5-4.9) mg/dl Magnesium 2.3 (1.7-2.4) mg/dl Total Bilirubin 0.9 (0.2-1.0) mg/dl AST 82 H (13-39) U/L ALT 84 H (7-52) U/L Alkaline Phosphatase 111 H (34-104) U/L Total Creatine Kinase (30-223) U/L Troponin I 0.04 (0-0.04) ng/ml Total Protein 8.7 H (6.0-8.3) gm/dl Albumin 5.4 H (3.4-5.0) gm/dl Globulin 3.3 (2.5-4.0) gm/dl Albumin/Globulin Ratio 1.6 (0.9-2) Lipase 108 H (11-82) U/L Procalcitonin (0-0.5) ng/ml TSH 2.925 (0.300-4.500) uIu/ml SARS-CoV-2 (PCR) (Negative) Influenza Type A (PCR) (Neg) Influenza Type B (PCR) (Neg) RSV (RT-PCR) (Neg) 10/13/21 10/13/21 10/13/21 Range/Units 11:45 13:06 15:00 WBC (4.8-10.8) K/uL RBC (4.7-6.1) M/uL Hgb (14.0-18.0) g/dL Hct (42-52) % MCV (80-100) fL MCH (25-34) pg MCHC (32-36) g/dL RDW Std Deviation (36.4-46.3) fL RDW Coeff of Jerry (11.5-14.5) % Plt Count (130-400) K/uL MPV (7.4-10.4) fL Immature Gran % (Auto) % Neut % (Auto) % Lymph % (Auto) % Monroe % (Auto) % Eos % (Auto) % Baso % (Auto) % Neut # (Auto) (1.4-6.5) K/uL Lymph # (Auto) (1.2-3.4) K/uL Monroe # (Auto) (0.11-0.59) K/uL Eos # (Auto) (0-0.5) K/uL Baso # (Auto) (0-0.2) K/uL Immature Gran # (Auto) (0.00-0.02) K/uL PT 10.7 (9.0-12.0) Seconds INR 1.0 (0.9-1.1) Sodium (136-145) mmol/L Potassium (3.5-5.1) mmol/L Chloride (98-107) mmol/L Carbon Dioxide (21-32) mmol/L Anion Gap (3-11) BUN (6-23) mg/dl Creatinine (0.6-1.4) mg/dl Est Cr Clr Drug Dosing ml/min Est GFR ( Amer) ml/min Est GFR (Non-Af Amer) ml/min BUN/Creatinine Ratio (10-20) Glucose (70-99(Fasting)) mg/dl Lactate (0.4-2.0) mmol/L Calcium (8.5-10.1) mg/dl Phosphorus (2.5-4.9) mg/dl Magnesium (1.7-2.4) mg/dl Total Bilirubin (0.2-1.0) mg/dl AST (13-39) U/L ALT (7-52) U/L Alkaline Phosphatase (34-104) U/L Total Creatine Kinase 2354 H (30-223) U/L Troponin I (0-0.04) ng/ml Total Protein (6.0-8.3) gm/dl Albumin (3.4-5.0) gm/dl Globulin (2.5-4.0) gm/dl Albumin/Globulin Ratio (0.9-2) Lipase (11-82) U/L Procalcitonin (0-0.5) ng/ml TSH (0.300-4.500) uIu/ml SARS-CoV-2 (PCR) NEGATIVE (Negative) Influenza Type A (PCR) Negative (Neg) Influenza Type B (PCR) Negative (Neg) RSV (RT-PCR) Negative (Neg) 10/13/21 10/13/21 10/13/21 Range/Units 15:00 15:00 15:00 WBC (4.8-10.8) K/uL RBC (4.7-6.1) M/uL Hgb (14.0-18.0) g/dL Hct (42-52) % MCV (80-100) fL MCH (25-34) pg MCHC (32-36) g/dL RDW Std Deviation (36.4-46.3) fL RDW Coeff of Jerry (11.5-14.5) % Plt Count (130-400) K/uL MPV (7.4-10.4) fL Immature Gran % (Auto) % Neut % (Auto) % Lymph % (Auto) % Monroe % (Auto) % Eos % (Auto) % Baso % (Auto) % Neut # (Auto) (1.4-6.5) K/uL Lymph # (Auto) (1.2-3.4) K/uL Monroe # (Auto) (0.11-0.59) K/uL Eos # (Auto) (0-0.5) K/uL Baso # (Auto) (0-0.2) K/uL Immature Gran # (Auto) (0.00-0.02) K/uL PT (9.0-12.0) Seconds INR (0.9-1.1) Sodium 134 L (136-145) mmol/L Potassium 4.6 (3.5-5.1) mmol/L Chloride 103 (98-107) mmol/L Carbon Dioxide 21 (21-32) mmol/L Anion Gap 10 (3-11) BUN 55 H (6-23) mg/dl Creatinine 2.90 H (0.6-1.4) mg/dl Est Cr Clr Drug Dosing 43.1 ml/min Est GFR ( Amer) 28.5 ml/min Est GFR (Non-Af Amer) 24.6 ml/min BUN/Creatinine Ratio 19.0 (10-20) Glucose 74 (70-99(Fasting)) mg/dl Lactate 0.8 (0.4-2.0) mmol/L Calcium 9.0 (8.5-10.1) mg/dl Phosphorus (2.5-4.9) mg/dl Magnesium (1.7-2.4) mg/dl Total Bilirubin (0.2-1.0) mg/dl AST (13-39) U/L ALT (7-52) U/L Alkaline Phosphatase (34-104) U/L Total Creatine Kinase (30-223) U/L Troponin I (0-0.04) ng/ml Total Protein (6.0-8.3) gm/dl Albumin (3.4-5.0) gm/dl Globulin (2.5-4.0) gm/dl Albumin/Globulin Ratio (0.9-2) Lipase (11-82) U/L Procalcitonin 0.27 (0-0.5) ng/ml TSH (0.300-4.500) uIu/ml SARS-CoV-2 (PCR) (Negative) Influenza Type A (PCR) (Neg) Influenza Type B (PCR) (Neg) RSV (RT-PCR) (Neg) Administered Medications Allopurinol (Allopurinol 100 Mg Tab) 200 mg PO DAILY ALEJANDRINA Stop: 11/13/21 08:59 Last Admin: 10/14/21 08:47 Dose: 200 mg Documented by: [id number] Amlodipine Besylate (Amlodipine Besylate 5 Mg Tab) 5 mg PO QAM ALEJANDRINA Stop: 11/13/21 08:59 Last Admin: 10/14/21 08:47 Dose: 5 mg Documented by: [id number] Gabapentin (Gabapentin 300 Mg Cap) 300 mg PO BID ALEJANDRINA Stop: 11/12/21 20:59 Last Admin: 10/14/21 08:48 Dose: 300 mg Documented by: [id number] Admin: 10/13/21 20:17 Dose: 300 mg Documented by: [id number] Sodium Chloride (Nss 1000ml) 1,000 mls @ 150 mls/hr IV .Q6H40M ALEJANDRINA Stop: 11/12/21 16:08 Last Admin: 10/14/21 08:44 Dose: 150 mls/hr Documented by: [id number] Infusion: 10/14/21 08:44 Dose: 125 mls/hr Documented by: [id number] Admin: 10/14/21 00:56 Dose: 125 mls/hr Documented by: [id number] Infusion: 10/14/21 00:56 Dose: 125 mls/hr Documented by: [id number] Admin: 10/13/21 17:03 Dose: 125 mls/hr Documented by: [id number] Miscellaneous (Remove Lidoderm Patch) 1 ea N/A DAILY@2100 [facility] Stop: 11/12/21 20:59 Last Admin: 10/13/21 20:17 Dose: 1 ea Documented by: [id number] Pantoprazole Sodium (Pantoprazole 40 Mg Tab) 40 mg PO DAILY ALEJANDRINA Stop: 11/13/21 08:59 Last Admin: 10/14/21 08:48 Dose: 40 mg Documented by: [id number] Discontinued Medications Sodium Chloride (Nss 1000ml) 2,000 mls @ 999 mls/hr IV .Q2H1M ONE Stop: 10/13/21 13:49 Last Infusion: 10/13/21 15:26 Dose: 0 mls/hr Documented by: [id number] Admin: 10/13/21 12:05 Dose: 999 mls/hr Documented by: [id number] Acetaminophen (Ofirmev) 1,000 mg in 100 mls @ 400 mls/hr IV NOW STA Stop: 10/13/21 12:03 Last Infusion: 10/13/21 12:51 Dose: 0 mls/hr Documented by: [id number] Admin: 10/13/21 12:16 Dose: 400 mls/hr Documented by: [id number] Famotidine (Pepcid 20mg Iv Push) 20 mg in 5 mls @ 2.5 mls/min IV NOW STA Stop: 10/13/21 11:51 Last Admin: 10/13/21 12:12 Dose: 2.5 mls/min Documented by: [id number] Ketorolac Tromethamine (Ketorolac Tromethamine 15 Mg/Ml Vial) 15 mg IV NOW STA Stop: 10/13/21 11:50 Last Admin: 10/13/21 12:07 Dose: 15 mg Documented by: [id number] Imaging Data Radiologist's Impression: Chest X-Ray 10/13/21 11:49 XR chest 1V portable HISTORY: 45 years-old Male Chest Pain . Acute atypical chest pain COMPARISON: Chest radiograph 06/09/2021 TECHNIQUE: Portable AP view of the chest FINDINGS: The cardiac silhouette is enlarged. No pneumothorax, large pleural effusion, airspace consolidation or overt pulmonary edema. Degenerative changes of the shoulders and spine. IMPRESSION: No acute process. ACT 112: Negative or not required by law. The above report was generated using voice recognition software. It may contain grammatical, syntax or spelling errors. Electronically signed by: Darío Valencia M.D. 10/13/2021 12:04 PM Abdomen/Pelvis CT 10/13/21 12:52 CT OF THE ABDOMEN AND PELVIS WITHOUT CONTRAST CLINICAL HISTORY: Renal failure. COMPARISON STUDY: CT of the abdomen and pelvis June 08, 2021. TECHNIQUE: Axial images of the abdomen and pelvis were obtained without IV contrast. Images were reviewed in the axial, sagittal, and coronal planes. Au tomated exposure control was utilized for the study. A dose lowering technique was utilized adhering to the principles of ALARA. FINDINGS: There are a few punctate bilateral renal calculi. No ureteral calculi or hydronephrosis is present. There is no perinephric infiltration. The kidneys are unremarkable on this unenhanced CT Evaluation of the remainder of the abdomen and pelvis is suboptimal on this unenhanced study. Hepatic steatosis is present. No hepatic lesions are identified on this unenhanced exam. Borderline splenomegaly is unchanged. Unenhanced images of the adrenal glands and pancreas are unremarkable. No evidence for a bowel obstruction. The appendix is not visualized and likely surgically absent. No lymphadenopathy or ascites is present. Postoperative findings within the far spine are noted. These are suboptimally assessed by CT. No acute fracture within visualized skeletal structures. IMPRESSION: 1. Punctate bilateral renal calculi. No ureteral calculi or hydronephrosis. 2. No acute process within the abdomen or pelvis on unenhanced exam. 3. Hepatic steatosis. ACT 112: Negative or not required by law. Electronically signed by: Darian Conde M.D. 10/13/2021 1:47 PM Discharge Plan Visit Data Chief Complaint: Tachycardia ED Provider: Waqar Thompson Discharge Problem: Acute renal failure, Serum potassium elevated, Rhabdomyolysis, Transaminitis, Serum calcium elevated, Leukocytosis Patient Disposition: Admitted As Inpatient Discharge Instructions Interventions: ED Discharge Assessment Last Done: 10/13/21 16:00 Discharge Problem: Acute renal failure Qualifiers: Acute renal failure type: unspecified Qualified Code(s): N17.9 - Acute kidney failure, unspecified Rhabdomyolysis Qualifiers: Rhabdomyolysis type: non-traumatic Qualified Code(s): M62.82 - Rhabdomyolysis Leukocytosis Qualifiers: Leukocytosis type: unspecified Qualified Code(s): D72.829 - Elevated white blood cell count, unspecified
[2021-10-13 14:49] LABS: Influenza A virus by PCR Negative (Neg); Influenza B virus by PCR Negative (Neg); RSV by PCR Negative (Neg); SARS CoV2 RNA(COVID-19) InHosp NEGATIVE (Negative)
--- NOTE | 2021-10-13 14:57 | Electrocardiogram Report ---
Test Reason : Blood Pressure : / mmHG Vent. Rate : 094 BPM Atrial Rate : 094 BPM P-R Int : 144 ms QRS Dur : 104 ms QT Int : 344 ms P-R-T Axes : 038 040 025 degrees QTc Int : 430 ms Normal sinus rhythm Normal ECG When compared with ECG of 29-JUL-2017 20:19, No significant change was found Confirmed by Remy Waddell ([id number]) on 10/13/2021 2:56:30 PM Referred By: REFERRED SELF Confirmed By:Remy Waddell
[2021-10-13 15:43] LABS: Prothrombin Time 10.7 Seconds (9.0-12.0)
[2021-10-13 15:54] LABS: Creatinine Clr Calc Pharmacy 43.1 ml/min; Est GFR (African American) 28.5 ml/min; Est GFR (Non-African American) 24.6 ml/min; Potassium 4.6 mmol/L (3.5-5.1)
[2021-10-13] MEDS ORDERED: ONDANSETRON INJ 2 MG/ML 2 ML VIAL IV PRN (16:56)
[2021-10-13] MEDS ORDERED: traZODone HCL 50 MG TAB PO PRN (16:56)
[2021-10-13] MEDS ORDERED: LIDOCAINE 5% 1 PATCH TD PRN (16:56)
[2021-10-13] MEDS: SODIUM CHLORIDE 0.9% 1000ML 1,000 ML IV SCH (17:03)
[2021-10-13 17:26] LABS: Appearance Urine Cloudy (Clear); Bacteria Urine Automated Negative (Negative); Bilirubin Urine Negative (Negative); Blood Urine Negative (Negative); Color Urine Yellow; Epithelial Cell Urine Auto 20-30 /lpf (0-5); Glucose Urine UA Negative (Negative); Ketones Urine Negative (Negative); Leukocyte Esterase Urine Trace (Negative); Nitrite Urine Negative (Negative); Protein Urine 1+ (Negative); RBC Urine Automated 0-4 /hpf (0-4); Specific Gravity Urine 1.019 (1.000-1.030); Urobilinogen Urine Negative (Negative)
[2021-10-13 18:00] LABS: Amphetamines+Metham, Urine Neg (Neg); Barbiturates, Urine Neg (Neg); Benzodiazepine, Urine Neg (Neg); Cocaine, Urine Neg (Neg); MDMA (Ecstacy), Urine Neg (Neg); Methadone, Urine Neg (Neg); Opiate, Urine Neg (Neg); Phencyclidine, Urine Neg (Neg)
[2021-10-13] MEDS: GABAPENTIN 300 MG CAP PO SCH (20:17)
[2021-10-14] MEDS: SODIUM CHLORIDE 0.9% 1000ML 1,000 ML IV SCH ×4 (00:56→22:43)
[2021-10-14 07:09] LABS: Albumin Globulin Ratio 1.6 (0.9-2); Albumin Level 4.5 gm/dl (3.4-5.0); BUN Creatinine Ratio 27.8 (10-20); Bilirubin Direct 0.1 mg/dl (0-0.2); Bilirubin,Total 0.6 mg/dl (0.2-1.0); Creatinine Clr Calc Pharmacy 76.6 ml/min; Est GFR (African American) 57.7 ml/min; Est GFR (Non-African American) 49.8 ml/min; Globulin 2.8 gm/dl (2.5-4.0); Total Protein 7.3 gm/dl (6.0-8.3)
[2021-10-14 08:01] LABS: Hemoglobin 14.9 g/dL (14.0-18.0); Mean Corpuscular Hemoglobin 29.3 pg (25-34); Mean Corpuscular Hgb Conc 33.1 g/dL (32-36); Mean Corpuscular Volume 88.6 fL (80-100); Mean Platelet Volume 10.9 fL (7.4-10.4); Platelet Count 267 K/uL (130-400); RDW Coefficient of Variation 16.1 % (11.5-14.5); RDW Standard Deviation 52.6 fL (36.4-46.3); Red Blood Count 5.08 M/uL (4.7-6.1); White Blood Count 6.03 K/uL (4.8-10.8)
[2021-10-14 08:47] LABS: Basophils # (auto) 0.03 K/uL (0-0.2); Basophils % (auto) 0.5 %; Eosinophils % (auto) 3.3 %; Lymphocytes % (auto) 29.9 %; Neutrophils % (auto) 61.3 %
[2021-10-14] MEDS: amLODIPine BESYLATE 5 MG TAB PO SCH (08:47)
[2021-10-14] MEDS: allopurinoL 100 MG TAB PO SCH (08:47)
[2021-10-14] MEDS: GABAPENTIN 300 MG CAP PO SCH ×2 (08:48→20:09)
[2021-10-14] MEDS: PANTOprazole 40 MG TAB PO SCH (08:48)
[2021-10-14] MEDS ORDERED: allopurinoL 300 MG TAB PO SCH (09:00)
--- NOTE | 2021-10-14 13:19 | Hospitalist Progress Note ---
Date of Service October 14, 2021 Assessment & Plan (1) Rhabdomyolysis: Plan: Significantly improved. Continue with IV hydration. Repeat CK levels in the morning. (2) Transaminitis: Plan: Likely secondary to above in addition to daily ingestion of 4000 to 6000 mg of Tylenol daily. - Is improving. (3) Acute renal failure: Plan: Likely renal toxicity secondary to above. Much improved continue with hydration repeat levels in the morning. Hold nephrotoxic agents. Hold lisinopril. (4) Serum potassium elevated: Plan: Secondary to intracellular release of potassium. Has resolved. Continue hydration (5) Hyperkalemia: (6) Hypertension: Plan: Stable continue to hold lisinopril Admission and Anticipated Discharge Date Admission Date: October 13, 2021 Subjective Patient is a pleasant Cardopa presented to the hospital with rhabdomyolysis and YUDITH after doing significant exercises on a restricted diet of meat and vegetables. Patient is feeling much better today. States that he is ambulating. Denies any pain. Asking when he can be discharged. Explained about the lab work that needs to improve. Patient agrees. Otherwise denies active chest pain shortness of breath nausea vomiting. Review of Systems Review of Systems: All systems reviewed and negative other than as described above in the history and physical Physical Exam Physical Exam: Constitutional:WD/WN, vitals as above Neck: trachea midline, no thyromegaly Respiratory: normal respiratory effort, lungs clear to auscultationAuscultation:no rhonchi and no wheezes Cardiovascular:RRR, no murmur, no edemaHeart Sounds:no murmur Gastrointestinal (Abdomen):normal bowel sounds, soft, nontender, no hepatosplenomegaly Musculoskeletal:no cyanosis or clubbing, extremities motor strength 5/5 Skin: no rashes, warm and dry Neurologic: AA+Ox3, euthymic affect Results & Data Results & Data ([facility]) Vital Signs (Past 12 Hours) Vital Signs Temp Pulse Resp BP Pulse Ox 10/14/21 12:10 36.4 C L 84 18 120/78 97 10/14/21 08:06 36.8 C 83 18 136/77 98 10/14/21 03:01 36.4 C L 70 20 113/68 98 Laboratory Results Laboratory Results WBC 6.03 K/uL (4.8-10.8) D 10/14/21 06:28 RBC 5.08 M/uL (4.7-6.1) 10/14/21 06:28 Hgb 14.9 g/dL (14.0-18.0) 10/14/21 06:28 Hct 45.0 % (42-52) 10/14/21 06:28 MCV 88.6 fL (80-100) 10/14/21 06:28 MCH 29.3 pg (25-34) 10/14/21 06:28 MCHC 33.1 g/dL (32-36) 10/14/21 06:28 RDW Std Deviation 52.6 fL (36.4-46.3) H 10/14/21 06:28 RDW Coeff of Jerry 16.1 % (11.5-14.5) H 10/14/21 06:28 Plt Count 267 K/uL (130-400) 10/14/21 06:28 MPV 10.9 fL (7.4-10.4) H 10/14/21 06:28 Immature Gran % (Auto) 0.0 % 10/14/21 06:28 Neut % (Auto) 61.3 % 10/14/21 06:28 Lymph % (Auto) 29.9 % 10/14/21 06:28 [place]linger % (Auto) 5.0 % 10/14/21 06:28 Eos % (Auto) 3.3 % 10/14/21 06:28 Baso % (Auto) 0.5 % 10/14/21 06:28 Neut # (Auto) 3.70 K/uL (1.4-6.5) 10/14/21 06:28 Lymph # (Auto) 1.80 K/uL (1.2-3.4) 10/14/21 06:28 Bollinger # (Auto) 0.30 K/uL (0.11-0.59) 10/14/21 06:28 Eos # (Auto) 0.20 K/uL (0-0.5) 10/14/21 06:28 Baso # (Auto) 0.03 K/uL (0-0.2) 10/14/21 06:28 Immature Gran # (Auto) 0.00 K/uL (0.00-0.02) 10/14/21 06:28 PT 10.7 Seconds (9.0-12.0) 10/13/21 15:00 INR 1.0 (0.9-1.1) 10/13/21 15:00 Sodium 136 mmol/L (136-145) 10/14/21 06:28 Potassium 5.0 mmol/L (3.5-5.1) 10/14/21 06:28 Chloride 106 mmol/L (98-107) 10/14/21 06:28 Carbon Dioxide 24 mmol/L (21-32) 10/14/21 06:28 Anion Gap 6 (3-11) 10/14/21 06:28 BUN 45 mg/dl (6-23) H 10/14/21 06:28 Creatinine 1.62 mg/dl (0.6-1.4) H D 10/14/21 06:28 Est Cr Clr Drug Dosing 76.6 ml/min 10/14/21 06:28 Est GFR ( Amer) 57.7 ml/min 10/14/21 06:28 Est GFR (Non-Af Amer) 49.8 ml/min 10/14/21 06:28 BUN/Creatinine Ratio 27.8 (10-20) H 10/14/21 06:28 Glucose 106 mg/dl (70-99(Fasting)) H 10/14/21 06:28 Lactate 0.8 mmol/L (0.4-2.0) 10/13/21 15:00 Calcium 9.0 mg/dl (8.5-10.1) 10/14/21 06:28 Phosphorus 5.1 mg/dl (2.5-4.9) H 10/13/21 11:45 Magnesium 2.3 mg/dl (1.7-2.4) 10/13/21 11:45 Total Bilirubin 0.6 mg/dl (0.2-1.0) 10/14/21 06:28 Direct Bilirubin 0.1 mg/dl (0-0.2) 10/14/21 06:28 AST 66 U/L (13-39) H 10/14/21 06:28 ALT 67 U/L (7-52) H 10/14/21 06:28 Alkaline Phosphatase 91 U/L (34-104) 10/14/21 06:28 Total Creatine Kinase 1917 U/L (30-223) H 10/14/21 06:28 Troponin I 0.04 ng/ml (0-0.04) 10/13/21 11:45 Total Protein 7.3 gm/dl (6.0-8.3) 10/14/21 06:28 Albumin 4.5 gm/dl (3.4-5.0) 10/14/21 06:28 Globulin 2.8 gm/dl (2.5-4.0) 10/14/21 06:28 Albumin/Globulin Ratio 1.6 (0.9-2) 10/14/21 06:28 Lipase 108 U/L (11-82) H 10/13/21 11:45 Procalcitonin 0.27 ng/ml (0-0.5) 10/13/21 15:00 TSH 2.925 uIu/ml (0.300-4.500) 10/13/21 11:45 Urine Color Yellow 10/13/21 17:00 Urine Appearance Cloudy (Clear) A 10/13/21 17:00 Urine pH 5.0 (4.5-7.5) 10/13/21 17:00 Ur Specific [place] 1.019 (1.000-1.030) 10/13/21 17:00 Urine Protein 1+ (Negative) H 10/13/21 17:00 Urine Glucose (UA) Negative (Negative) 10/13/21 17:00 Urine Ketones Negative (Negative) 10/13/21 17:00 Urine Blood Negative (Negative) 10/13/21 17:00 Urine Nitrite Negative (Negative) 10/13/21 17:00 Urine Bilirubin Negative (Negative) 10/13/21 17:00 Urine Urobilinogen Negative (Negative) 10/13/21 17:00 Ur Leukocyte Esterase Trace (Negative) H 10/13/21 17:00 Urine WBC (Auto) 5-10 /hpf (0-5) H 10/13/21 17:00 Urine RBC (Auto) 0-4 /hpf (0-4) 10/13/21 17:00 U Hyaline Cast (Auto) 5-10 /lpf (0-5) H 10/13/21 17:00 U Epithel Cells (Auto) 20-30 /lpf (0-5) H 10/13/21 17:00 Urine Bacteria (Auto) Negative (Negative) 10/13/21 17:00 Urine Opiates Screen Neg (Neg) 10/13/21 17:00 Ur Methadone, Qual Neg (Neg) 10/13/21 17:00 Acetaminophen 7 ug/ml (10-30) L 10/13/21 16:34 Urine Barbiturates Neg (Neg) 10/13/21 17:00 Ur Phencyclidine (PCP) Neg (Neg) 10/13/21 17:00 U Amphetamin/Meth Scrn Neg (Neg) 10/13/21 17:00 MDMA (Ecstasy) Screen Neg (Neg) 10/13/21 17:00 U Benzodiazepines Scrn Neg (Neg) 10/13/21 17:00 Ur Cocaine Metabolite Neg (Neg) 10/13/21 17:00 U Marijuana (THC) Screen Neg (Neg) 10/13/21 17:00 SARS-CoV-2 (PCR) NEGATIVE (Negative) 10/13/21 13:06 Influenza Type A (PCR) Negative (Neg) 10/13/21 13:06 Influenza Type B (PCR) Negative (Neg) 10/13/21 13:06 RSV (RT-PCR) Negative (Neg) 10/13/21 13:06 Impressions Chest X-Ray 10/13/21 11:49 XR chest 1V portable HISTORY: 45 years-old Male Chest Pain . Acute atypical chest pain COMPARISON: Chest radiograph 06/09/2021 TECHNIQUE: Portable AP view of the chest FINDINGS: The cardiac silhouette is enlarged. No pneumothorax, large pleural effusion, airspace consolidation or overt pulmonary edema. Degenerative changes of the shoulders and spine. IMPRESSION: No acute process. ACT 112: Negative or not required by law. The above report was generated using voice recognition software. It may contain grammatical, syntax or spelling errors. Electronically signed by: Darío Valencia M.D. 10/13/2021 12:04 PM Abdomen/Pelvis CT 10/13/21 12:52 CT OF THE ABDOMEN AND PELVIS WITHOUT CONTRAST CLINICAL HISTORY: Renal failure. COMPARISON STUDY: CT of the abdomen and pelvis June 08, 2021. TECHNIQUE: Axial images of the abdomen and pelvis were obtained without IV contrast. Images were reviewed in the axial, sagittal, and coronal planes. Automated exposure control was utilized for the study. A dose lowering technique was utilized adhering to the principles of ALARA. FINDINGS: There are a few punctate bilateral renal calculi. No ureteral calculi or hydronephrosis is present. There is no perinephric infiltration. The kidneys are unremarkable on this unenhanced CT Evaluation of the remainder of the abdomen and pelvis is suboptimal on this unenhanced study. Hepatic steatosis is present. No hepatic lesions are eb ntified on this unenhanced exam. Borderline splenomegaly is unchanged. Unenhanced images of the adrenal glands and pancreas are unremarkable. No evidence for a bowel obstruction. The appendix is not visualized and likely surgically absent. No lymphadenopathy or ascites is present. Postoperative findings within the far spine are noted. These are suboptimally assessed by CT. No acute fracture within visualized skeletal structures. IMPRESSION: 1. Punctate bilateral renal calculi. No ureteral calculi or hydronephrosis. 2. No acute process within the abdomen or pelvis on unenhanced exam. 3. Hepatic steatosis. ACT 112: Negative or not required by law. Electronically signed by: Darian Conde M.D. 10/13/2021 1:47 PM Medications Administered Current Inpatient Medications Allopurinol (Allopurinol 100 Mg Tab) 200 mg PO DAILY ALEJANDRINA Stop: 11/13/21 08:59 Last Admin: 10/14/21 08:47 Dose: 200 mg Documented by: Amlodipine Besylate (Amlodipine Besylate 5 Mg Tab) 5 mg PO QAM ALEJANDRINA Stop: 11/13/21 08:59 Last Admin: 10/14/21 08:47 Dose: 5 mg Documented by: Gabapentin (Gabapentin 300 Mg Cap) 300 mg PO BID ALEJANDRINA Stop: 11/12/21 20:59 Last Admin: 10/14/21 08:48 Dose: 300 mg Documented by: Sodium Chloride (Nss 1000ml) 1,000 mls @ 150 mls/hr IV [id number] Stop: 11/12/21 16:08 Last Admin: 10/14/21 08:44 Dose: 150 mls/hr Documented by: Lidocaine (Lidocaine 5% 1 Patch) 1 patch TD QAM PRN PRN Reason: Pain Stop: 11/12/21 16:55 Miscellaneous (Remove Lidoderm Patch) 1 ea N/A DAILY@[facility] Stop: 11/12/21 20:59 Last Admin: 10/13/21 20:17 Dose: 1 ea Documented by: Ondansetron HCl (Ondansetron Inj 2 Mg/Ml 2 Ml Vial) 4 mg IV Q6H PRN PRN Reason: Nausea Stop: 11/12/21 16:55 Pantoprazole Sodium (Pantoprazole 40 Mg Tab) 40 mg PO DAILY ALEJANDRINA Stop: 11/13/21 08:59 Last Admin: 10/14/21 08:48 Dose: 40 mg Documented by: Trazodone HCl (Trazodone Hcl 50 Mg Tab) 50 mg PO HS PRN PRN Reason: Insomnia Stop: 11/12/21 16:55 (1) Rhabdomyolysis Rhabdomyolysis type: non-traumatic Qualified Code(s): M62.82 - Rhabdomyolysis (2) Acute renal failure Acute renal failure type: unspecified Qualified Code(s): N17.9 - Acute kidney failure, unspecified
[2021-10-15] MEDS ORDERED: traMADol HCL 50 MG TABLET PO PRN (03:21)
[2021-10-15] MEDS: SODIUM CHLORIDE 0.9% 1000ML 1,000 ML IV SCH (04:10)
[2021-10-15 06:27] LABS: Albumin Globulin Ratio 1.6 (0.9-2); Albumin Level 4.4 gm/dl (3.4-5.0); BUN Creatinine Ratio 23.2 (10-20); Bilirubin,Total 0.4 mg/dl (0.2-1.0); Calcium 9.1 mg/dl (8.5-10.1); Creatinine Clr Calc Pharmacy 125.3 ml/min; Est GFR (African American) 104.7 ml/min; Est GFR (Non-African American) 90.3 ml/min; Globulin 2.8 gm/dl (2.5-4.0); Potassium 5.3 mmol/L (3.5-5.1); Total Protein 7.2 gm/dl (6.0-8.3)
[2021-10-15] MEDS: PANTOprazole 40 MG TAB PO SCH (08:24)
[2021-10-15] MEDS: amLODIPine BESYLATE 5 MG TAB PO SCH (08:24)
[2021-10-15] MEDS: GABAPENTIN 300 MG CAP PO SCH (08:24)
[2021-10-15] MEDS: allopurinoL 100 MG TAB PO SCH (08:24)
--- NOTE | 2021-10-15 12:16 | Discharge Summary ---
Date of Service October 15, 2021 Admission HPI Per Admitting Provider Patient is 45-year-old male with PMH HTN, chronic back pain and chronic bilateral knee pain, gout presented to ER with c/o muscle cramps x2 days. Patient reports the past 2 days he has been having muscle cramping to bilateral arms and legs, bilateral shoulders, chest, neck. 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 He states today he had to "take down an inmate" and after he was very diaphoretic and felt like he had elevated heart rate without sensation of skipped beats and also reports increased muscle cramping. This prompted him to come to ER. He denies any known fever and reports has temperature checked at work and did not report fever. Patient reports yesterday noticed urine was very dark yellow. Reports has not urinated today. Prior to ER arrival reports a little abdominal discomfort just distal to his umbilicus. He states this lasted approximately an hour and has since resolved. Denies any other abdominal pain or flank pain. He reports chronic low back pain and radiculopathy and feels this is unchanged. He states the past week he has changed his diet and attempts to lose weight. He reports that he has been eating lean meats and veggies and eating 6 small meals a day and has lost 13 pounds in the past week. He also has increased his exercise routine and has been lifting weights and using elliptical three times a week. Also reports frontal headache for the past 2 days. Denies any current headache. Has been having nausea past 2 days, worse this morning. Denies vomiting. Reports 2 episodes of loose stool this morning. Patient reports often has loose stool depending on what he eats. Patient reports takes extra strength Tylenol 3 to 4 tablet 2-3 times a day for over 1 year. Patient also admits to using 2 tabs ibuprofen twice daily for the past month. Prior inpatient and outpatient records reviewed. Patient was hospitalized 06/09/2021-06/13/2021 for GI bleed secondary to duodenal ulcer. Had repeat EGD by Dr. Minaya on 10/02/2021 with Findings of reflux esophagitis, gastritis, duodenitis. Patient on prednisone taper 09/26/2021 for cervical neck pain and radiculopathy. Patient reports took 3 days of prednisone and then stopped because he reports it made him feel bloated and jittery. States saw a chiropractor and has been completing neck exercises with resolution of neck pain and left arm radiculopathy. Denies dizziness, syncope, vision changes, CP, SOB, orthopnea, cough, sore throat, choking, otalgia, rhinorrhea, extremity weakness, extremity edema, rashes, dysuria, hematuria, hematochezia, melena. Principal Diagnosis Rhabdomyolysis Discharge Exam Constitutional:WD/WN, vitals as above Neck: trachea midline, no thyromegaly Respiratory: normal respiratory effort, lungs clear to auscultationAuscultation:no rhonchi and no wheezes Cardiovascular:RRR, no murmur, no edemaHeart Sounds:no murmur Gastrointestinal (Abdomen):normal bowel sounds, soft, nontender, no hepatosplenomegaly Musculoskeletal:no cyanosis or clubbing, extremities motor strength 5/5 Skin: no rashes, warm and dry Neurologic: AA+Ox3, euthymic affect Discharge Data Allergies Allergy/AdvReac Type Severity Reaction Status Date / Time No Known Allergies Allergy Verified 10/13/21 14:29 Ordered Studies 10/13/21 12:52 CT abd pelvis wo con Stat Hospital Course (1) Rhabdomyolysis: Levels markedly improved. Recommended patient to drink a cup of water every 2 hours while awake. Patient agrees. Patient also agrees to follow-up lab work in 1 week's time. Patient very eager for discharge today states he is feeling fine and is ambulatory and denies any complaints. States he can recuperate at home further. (2) Transaminitis: Recommended patient to avoid Tylenol use. Patient agrees (3) Acute renal failure: This is resolved follow-up lab work in 1 week's time. Patient agrees (4) Serum potassium elevated: Repeat lab work in 1 week's time. Patient to self hydrate. (5) Hypertension: Total Time Total Time Spent Total Time Spent (In Minutes): 35 minutes Discharge Plan Discharge Items Patient Disposition: Home - Self-Care Reason For Visit: YUDITH Discharge Diagnosis: Rhabdomyolysis Activity: As commented below Activity Comment: Avoid any type of exercise activity until cleared by PMD Lifting Comment: No lifting until cleared by PMD Exercise/Sports: Wait until after follow-up appointment Non-emergency contact: Primary Care Provider Call non-emergency contact if: your symptoms worsen Follow-up/Referrals: Lui Benavides, DO [Primary Care Provider] - Diet: Heart Healthy Ambulatory Orders: Creatine Kinase (Timed) Timeframe: 1 Week Location: Determined by Patient Ordered By: Alfredo Pizarro Comprehensive Metabolic Panel (Routine) Timeframe: 1 Week Location: Determined by Patient Ordered By: Alfredo Pizarro Addtl Attending Provider Instructions: No lifting until cleared by PMD Pending Studies at Discharge: No Stand-Alone Forms: My [facility] Hygiene, Work/School Release, Smoking Cessation Medications and DC Order Prescriptions: Continued acetaminophen [Tylenol Extra Strength] 500 mg Tablet 100 mg PO TID PRN (Reason: Pain) RF: 0 trazodone 50 mg tablet 50 mg PO HS PRN (Reason: Insomnia) RF: 0 allopurinol 300 mg tablet 450 mg PO DAILY RF: 0 gabapentin 300 mg capsule 300 mg PO TID RF: 0 pantoprazole 40 mg tablet,delayed release (DR/EC) 40 mg PO DAILY RF: 0 cyclobenzaprine 5 mg tablet 5 mg PO TID PRN (Reason: Muscle Spasm) RF: 0 diclofenac sodium 1 % gel 1 ea TOPICAL TID PRN (Reason: Pain) RF: 0 amlodipine 5 mg tablet 5 mg PO QAM RF: 0 lisinopril 30 mg tablet 30 mg PO QAM RF: 0 lidocaine 5 % adhesive patch,medicated 1 patch transdermal QAM PRN (Reason: Pain) RF: 0 Discharge Orders: Discharge Order (Routine); Ordered 10/15/21 Ordered By: Alfredo Pizarro Admission Data Admit Date/Time: 10/13/21 15:05 Attending Provider: Alfredo Pizarro Admit Provider: Mónica Anders Primary Care Provider: Lui Benavides Other Providers: Mónica Anders
== END 2021-10-15 13:30 | disposition home or self-care (01) | DRG 683 ==
LOC: ED 11:30 → 2N 15:05 → SUATTDRO 15:05 → INTOOBSV 15:05 → 2N 16:00